=== PATIENT | male | born 1950 | race Asian ===

== ENCOUNTER 2016-06-24 18:36 | Observation (INO) | payer BC, MEDICARE ==
[~2016-06-24] VITALS: Ht 177.8 cm; Wt 75.7 kg
[~2016-06-24 18:36] MED LIST: ACET-2267 PO; ASPI-586 PO; ASPI-983 PO; ATOR20TA66 PO; CHOL100045 PO; CHOL10008 PO; CLOP75TA69 PO; ESCI10TA PO; L.AC1CAP6 PO; METO-270 PO; METO-333 PO; MULT1CAP27 PO; MULT1TAB69 PO; NITR0.4T SL; PANT40SU PO; UBID100T7 PO; UBID10CA5 PO
--- NOTE | 2016-06-24 18:52 | ED Chest Pain ---
General Chief Complaint: Chest Pain Stated Complaint: his last Source: patient Exam Limitations: no limitations History of Present Illness Time seen by provider: 18:50 Initial Comments To ER with reports of chest pain. This began yesterday at 8 p.m. at rest. He describes it as someone was pushing with one finger on the left sternal border second intercostal space. Since then, the pain has been intermittent. He is currently pain-free. He does have a history of CABG with reports that 2 of the bypass grafts are occluded and cannot be stented he states. He denies shortness of breath nausea or diaphoresis associated with the chest pain. No modifying factors that he can identify. Follows with Dr. Oh. He was sent here from urgent care. He had 325 mg of aspirin this morning and 325 mg at urgent care. Blood pressure is noted to be high here at 210/100 but states because he's anxious as urgent care scared him. Timing/Duration: 24 hours, intermittent Severity/Quality: moderate ASA po PSYCH SPECIALIST: Yes NTG SL PSYCH SPECIALIST: No Allergies and Home Medications Allergies Coded Allergies: levetiracetam (Verified Allergy, Mild, 10/11/15) Penicillins (Verified Allergy, Unknown, 09/22/15) cefuroxime (Verified Allergy, Unknown, 09/22/15) Home Medications Aspirin 81 Mg Tablet.dr 81 MG PO DAILY (Reported) Atorvastatin Calcium 20 Mg Tablet 20 MG PO HS (Reported) Cholecalciferol (Vitamin D3) 1,000 Unit Tablet 1,000 UNIT PO DAILY (Reported) Escitalopram Oxalate 10 Mg Tablet 10 MG PO HS (Reported) L.acidoph & Paracasei,B.lactis 1 Each Capsule 1 CAP PO DAILY (Reported) Metoprolol Tartrate 25 Mg Tablet 12.5 MG PO BID (Reported) Multivitamin 1 Each Tablet 1 TAB PO DAILY (Reported) Nitroglycerin 0.4 Mg Tab.subl #100 0.4 MG SL PRN (Reported) Review of Systems Constitutional: see HPI EENTM: No Symptoms Reported Respiratory: No Symptoms ReportedDenies Orthopnea Cardiovascular: See HPI Chest PainDenies Edema, Denies Irregular Heart Rate, Denies Lightheadedness, Denies Palpitations, Denies Syncope Gastrointestinal: See HPI Genitourinary: No Symptoms Reported Musculoskeletal: no symptoms reported Skin: no symptoms reported Psychiatric/Neurological: No Symptoms Reported Endocrine: No Symptoms Reported Hematologic/Lymphatic: No Symptoms Reported Past Hruflmj-Saukvs-Cblumt Hx Patient Social History Recent Foreign Travel: No Contact w/Someone Who Travel: No Recent Hopitalizations: No Immunizations Up To Date Tetanus Booster (TDap): Unknown Surgeries HX Surgeries: Yes Surgeries: Cardiac, CABG, Neurological Respiratory Hx Respiratory Disorders: Yes Respiratory Disorders: Sleep Apnea Cardiovascular Hx Cardiac Disorders: Yes Cardiac Disorders: Coronary Artery Disease, Heart Attack, High Cholesterol, Hypertension Neurological Hx Neurological Disorders: Yes (SUBDURAL HEMATOMA 09/27) Reproductive System Hx Reproductive Disorders: No Genitourinary Hx Genitourinary Disorders: No Gastrointestinal Hx Gastrointestinal Disorders: No Musculoskeletal Hx Musculoskeletal Disorders: No Endocrine Hx Endocrine Disorders: No HEENT HX ENT Disorders: No Cancer Hx Cancer: No Psychosocial Hx Psychiatric Problems: Yes Behavioral Health Disorders: Anxiety, Depression Integumentary HX Skin/Integumentary Disorder: No Blood Transfusions Hx Blood Disorders: No Family Medical History Family Medial History: FH: breast cancer 19 MOTHER Hypercholesterolemia G8 BROTHER Hypertension G8 BROTHER Physical Exam Vital Signs Vital Sign - Last 12Hours 06/24/16 18:40 Pulse Ox 100 O2 Delivery Room Air Capillary Refill : General Appearance: No Apparent Distress WD/WN HEENT: PERRL/EOMI TMs Normal Respiratory: Normal Breath Sounds No Accessory Muscle Use No Respiratory Distress Cardiovascular: Regular Rate, Rhythm Normal Peripheral Pulses Gastrointestinal: Normal Bowel Sounds Non Tender Soft Extremity: Normal Capillary Refill No Calf Tenderness Neurologic/Psychiatric: Alert Oriented x3 No Motor/Sensory Deficits Progress/Results/Core Measures Results/Orders Lab Results Laboratory Tests Test 06/24/16 18:57 Range/Units Activated Partial Thromboplast Time 28 24-35 SEC Alanine Aminotransferase (ALT/SGPT) 21 0-55 U/L Albumin 4.2 3.2-4.5 G/DL Alkaline Phosphatase 89 40-136 U/L Anion Gap 7 5-14 MMOL/L Aspartate Amino Transf (AST/SGOT) 24 5-34 U/L BUN/Creatinine Ratio 14 Basophils # (Auto) 0.1 0.0-0.1 10^3/uL Basophils (%) (Auto) 1 0-10 % Blood Urea Nitrogen 16 7-18 MG/DL Calcium Level 9.2 8.5-10.1 MG/DL Carbon Dioxide Level 24 21-32 MMOL/L Chloride Level 108 H 98-107 MMOL/L Creatinine 1.13 0.60-1.30 MG/DL Eosinophils # (Auto) 0.5 H 0.0-0.3 10^3/uL Eosinophils (%) (Auto) 8 0-10 % Estimat Glomerular Filtration Rate > 60 Glucose Level 82 70-105 MG/DL Hematocrit 42 40-54 % Hemoglobin 14.9 13.3-17.7 G/DL INR Comment 1.0 0.8-1.4 Lymphocytes # (Auto) 2.4 1.0-4.0 X 10^3 Lymphocytes (%) (Auto) 37 12-44 % Magnesium Level 2.1 1.8-2.4 MG/DL Mean Corpuscular Hemoglobin 30 25-34 PG Mean Corpuscular Hemoglobin Concent 36 32-36 G/DL Mean Corpuscular Volume 84 80-99 FL Mean Platelet Volume 9.3 7.4-10.4 FL Monocytes # (Auto) 0.7 0.0-1.0 X 10^3 Monocytes (%) (Auto) 10 0-12 % Myoglobin 62.3 10.0-92.0 NG/ML Neutrophils # (Auto) 2.8 1.8-7.8 X 10^3 Neutrophils (%) (Auto) 43 42-75 % Platelet Count 224 130-400 10^3/uL Potassium Level 3.7 3.6-5.0 MMOL/L Prothrombin Time 12.6 12.2-14.7 SEC Red Blood Count 4.92 4.35-5.85 10^6/uL Red Cell Distribution Width 11.7 10.0-14.5 % Sodium Level 139 135-145 MMOL/L Total Bilirubin 0.5 0.1-1.0 MG/DL Total Protein 7.2 6.4-8.2 G/DL Troponin I < 0.30 <0.30 NG/ML White Blood Count 6.4 4.3-11.0 10^3/uL My Orders Orders-ROBERT MAURICIO SALES MGR Cbc With Automated Diff (06/24/16 18:49) Magnesium (06/24/16 18:49) Chest 1 View, Ap/Pa Only (06/24/16 18:49) Ekg Tracing (06/24/16 18:49) Cardiac Profile 1 (06/24/16 18:49) Comprehensive Metabolic Panel (06/24/16 18:49) Myoglobin Serum (06/24/16 18:49) Protime With Inr (06/24/16 18:49) Partial Thromboplastin Time (06/24/16 18:49) O2 (06/24/16 18:49) Monitor-Rhythm Ecg Trace Only (06/24/16 18:49) Lipid Panel (06/25/16 06:00) Saline Lock/Iv-Start (06/24/16 18:49) Metoprolol Tartrate (Ir) Tab (Lopressor (06/24/16 19:30) Metoprolol Tartrate (Ir) Tab (Lopressor (06/24/16 19:27) Metoprolol Tartrate (Ir) Tab (Lopressor (06/24/16 19:30) Medications Given in ED Current Medications Medications Dose Ordered Sig/Luke Route Start Time Stop Time Status Last Admin Dose Admin Metoprolol Tartrate 25 mg ONCE ONCE PO 06/24/16 19:30 06/24/16 19:31 DC 06/24/16 19:32 25 MG Vital Signs/I&O Vital Sign - Last 12Hours 06/24/16 06/24/16 06/24/16 18:40 18:50 18:50 Temp 98.2 Pulse 82 Resp 18 B/P 190/105 Pulse Ox 100 100 O2 Delivery Room Air Room Air Room Air Departure Communication Time/Spoke to Admitting Phy: 19:[address] Hidalgo. We will admit for observation. Progress Notes 1930-blood pressure remains 170/100, heart rate 76 sinus without ectopy. I ordered 50 mg of metoprolol tartrate 50 mg. The family does not want him to have this, they only want him to have 25mg instead. Patient does request not to have an IV started but he does consent to blood draw. 1955-patient's daughter is present it is concerned that his hypertension on arrival may have caused recurrence of subdural hematoma even though he is symptom-free, but she does not want a CT scan at this time and would like to "think about it" because she is concerned about radiation. The patient himself is much more relaxed and his family members. He remains pain-free at this time. He has no focal neurologic deficits. Impression Impression: Primary Impression: Labile hypertension Additional Impression: Chest pain Qualified Code: R07.9 - Chest pain, unspecified Disposition: 09 ADMITTED INPATIENT Condition: Stable Decision to Admit Reason: Admit from ER (General) Decision to Admit/Date: Jun 24, 2016 Time/Decision to Admit Time: 19:58 Departure-Patient Inst. Referrals: ALANNA EDGAR DO (PCP/Family) Primary Care Physician ROBERT MAURICIO APRN Jun 24, 2016 18:52
[2016-06-24 19:11] LABS: BASOPHILS # (AUTO) 0.1 10^3/uL (0.0-0.1); BASOPHILS % (AUTO) 1 % (0-10); EOSINOPHILS # (AUTO) 0.5 10^3/uL (0.0-0.3); EOSINOPHILS % (AUTO) 8 % (0-10); LYMPHOCYTES # (AUTO) 2.4 X 10^3 (1.0-4.0); LYMPHOCYTES % (AUTO) 37 % (12-44); MEAN CORPUSCULAR HEMOGLOBIN 30 PG (25-34); MEAN CORPUSCULAR HGB CONC 36 G/DL (32-36); MEAN CORPUSCULAR VOLUME 84 FL (80-99); MEAN PLATELET VOLUME 9.3 FL (7.4-10.4); MONOCYTES # (AUTO) 0.7 X 10^3 (0.0-1.0); MONOCYTES % (AUTO) 10 % (0-12); NEUTROPHILS # (AUTO) 2.8 X 10^3 (1.8-7.8); NEUTROPHILS % (AUTO) 43 % (42-75); PLATELET COUNT 224 10^3/uL (130-400); RED BLOOD COUNT 4.92 10^6/uL (4.35-5.85); RED CELL DISTRIBUTION WIDTH 11.7 % (10.0-14.5); WHITE BLOOD COUNT 6.4 10^3/uL (4.3-11.0)
--- NOTE | 2016-06-24 19:14 | Diagnostic Imaging Report ---
INDICATION: Chest pain. EXAMINATION: Single view of the chest was obtained. COMPARISON: 04/18/2016. FINDINGS: Sternal wires are midline. The lungs are free of acute infiltrate. There is no failure, effusion or pneumothorax. IMPRESSION: No acute appearing abnormality. Dictated by: Dictated on workstation # [id number]
[2016-06-24 19:20] LABS: PROTHROMBIN TIME PATIENT 12.6 SEC (12.2-14.7)
[2016-06-24] MEDS ORDERED: meTOprolol TARTRATE 25 MG (LOPRESSOR) TABLET ONE (19:27)
[2016-06-24] MEDS ORDERED: meTOprolol TARTRATE 25 MG (LOPRESSOR) TABLET PO ONE (19:30)
[2016-06-24] MEDS ORDERED: meTOprolol TARTRATE 50 MG (LOPRESSOR) TAB PO ONE (19:30)
[2016-06-24 19:32] LABS: ALANINE AMINOTRANSFERASE 21 U/L (0-55); ALBUMIN 4.2 G/DL (3.2-4.5); ANION GAP 7 MMOL/L (5-14); ASPARTATE AMINO TRANSFERASE 24 U/L (5-34); BILIRUBIN,TOTAL 0.5 MG/DL (0.1-1.0); BLOOD UREA NITROGEN 16 MG/DL (7-18); BUN/CREATININE RATIO 14; CALCIUM 9.2 MG/DL (8.5-10.1); CARBON DIOXIDE 24 MMOL/L (21-32); CHLORIDE 108 MMOL/L (98-107); CREATININE SERUM 1.13 MG/DL (0.60-1.30); GFR ESTIMATED > 60; GLUCOSE 82 MG/DL (70-105); MAGNESIUM 2.1 MG/DL (1.8-2.4); POTASSIUM 3.7 MMOL/L (3.6-5.0); SODIUM 139 MMOL/L (135-145); TOTAL PROTEIN 7.2 G/DL (6.4-8.2)
[2016-06-24 19:39] LABS: MYOGLOBIN SERUM 62.3 NG/ML (10.0-92.0)
--- NOTE | 2016-06-24 21:24 | Diagnostic Imaging Report ---
PROCEDURE: CT head without contrast. TECHNIQUE: Multiple contiguous axial images were obtained through the brain without the use of intravenous contrast. INDICATION: Subdural hematoma. COMPARISON: 02/17/2016. FINDINGS: Old right frontal amy hole is noted. Shallow right hemispheric subdural low density collection today measures 6 mm, previously 6-7 mm, at the same level. This is stable if not slightly decreased. No hyperdense or acute appearing intracranial hemorrhage. The left hemisphere shows no extra-axial collection. No cerebral edema. No sulcal effacement. The ventricular system is nondilated and nondisplaced. Opacification of ethmoid air cells, bilaterally, is redemonstrated. There is opacification of the hypoplastic right frontal sinus. Small left frontal sinus is clear. Mastoids and middle ear cavities are clear. There is slight membrane thickening in the bilateral maxillary sinuses, stable. IMPRESSION: Stable to slightly decreased low-density chronic right hemispheric subdural collection without mass effect or evidence of acute or new hemorrhage. Extensive paranasal sinus disease redemonstrated. Dictated by: Dictated on workstation # [id number]
[2016-06-25 00:49] VITALS: BP 131/67
[2016-06-25 02:33] LABS: BASOPHILS % (AUTO) 1 % (0-10); EOSINOPHILS # (AUTO) 0.5 10^3/uL (0.0-0.3); EOSINOPHILS % (AUTO) 8 % (0-10); LYMPHOCYTES % (AUTO) 35 % (12-44); MEAN CORPUSCULAR HEMOGLOBIN 30 PG (25-34); MEAN CORPUSCULAR HGB CONC 36 G/DL (32-36); MEAN CORPUSCULAR VOLUME 85 FL (80-99); MEAN PLATELET VOLUME 9.5 FL (7.4-10.4); MONOCYTES # (AUTO) 0.5 X 10^3 (0.0-1.0); MONOCYTES % (AUTO) 9 % (0-12); NEUTROPHILS # (AUTO) 2.8 X 10^3 (1.8-7.8); NEUTROPHILS % (AUTO) 47 % (42-75); PLATELET COUNT 208 10^3/uL (130-400); RED BLOOD COUNT 4.32 10^6/uL (4.35-5.85); RED CELL DISTRIBUTION WIDTH 11.5 % (10.0-14.5); WHITE BLOOD COUNT 5.8 10^3/uL (4.3-11.0)
[2016-06-25 02:41] LABS: CREATINE KINASE 98 U/L (30-200)
[2016-06-25 02:46] LABS: ANION GAP 7 MMOL/L (5-14); BLOOD UREA NITROGEN 15 MG/DL (7-18); BUN/CREATININE RATIO 14; CALCIUM 8.8 MG/DL (8.5-10.1); CARBON DIOXIDE 25 MMOL/L (21-32); CHLORIDE 107 MMOL/L (98-107); CREATININE SERUM 1.11 MG/DL (0.60-1.30); GFR ESTIMATED > 60; GLUCOSE 83 MG/DL (70-105); MAGNESIUM 2.3 MG/DL (1.8-2.4); PHOSPHORUS 2.8 MG/DL (2.3-4.7); POTASSIUM 3.9 MMOL/L (3.6-5.0); SODIUM 139 MMOL/L (135-145)
[2016-06-25 02:47] LABS: TROPONIN I < 0.30 NG/ML (<0.30)
[2016-06-25 02:48] LABS: CHOLESTEROL 136 MG/DL (< 200); DIRECT LDL 87 MG/DL (1-129); TRIGLYCERIDES 88 MG/DL (<150); VLDL CHOLESTEROL 18 MG/DL (5-40)
[2016-06-25 04:00] VITALS: BP 109/62
[2016-06-25 07:24] LABS: CHOLESTEROL 141 MG/DL (< 200); DIRECT LDL 92 MG/DL (1-129); TRIGLYCERIDES 107 MG/DL (<150); VLDL CHOLESTEROL 21 MG/DL (5-40)
[2016-06-25 08:00] VITALS: BP 112/68
[2016-06-25] MEDS ORDERED: FLU TRIvalent (5 YOA+) 2016-17 (AFLURIA) 0.5 ML IM ONE (08:30)
--- NOTE | 2016-06-25 08:48 | Diagnostic Imaging Report ---
Portable erect AP chest at 513 hours. INDICATION: Chest pain. FINDINGS: The heart size is within normal limits and stable when compared to 06/24/16. The sternal wires and surgical clips noted previously are again evident and no different. The lungs are clear. There is no sign of failure, pneumonia or pleural effusion. Mediastinum is not widened. The osseous structures are intact. IMPRESSION: Stable chest. There has been no adverse change since the prior exam. Dictated by: Dictated on workstation # [id number]
--- NOTE | 2016-06-25 09:46 | Short Stay Summary ---
History of Present Illness History of Present Illness Reason for visit/HPI 66-year-old gentleman with history of coronary artery disease has history of CABG, cardiac catheterization post CABG, inoperable disease with occluded vein graft to the obtuse marginal, atretic vein graft to the right coronary artery, has been doing well*having some chest discomfort, retrosternal pain about 2 days ago lasted for a day on and off, went to the urgent care and then came to the emergency room, given sublingual nitroglycerin, since admission last night he has been feeling better, no further episode of chest pain, denied any associated symptoms of shortness of breath, palpitation, syncope or near syncopal episodes. He has been compliant with his medication, had a lot of questions, all his questions were answered. Date of Admission Jun 24, 2016 at 20:16 Date of Discharge June 25, 2016 Attending Physician Thalia Hidalgo MD Admitting Physician Fei Herrera DO Allergies and Home Medications Allergies Coded Allergies: levetiracetam (Verified Allergy, Mild, 10/11/15) Penicillins (Verified Allergy, Unknown, 09/22/15) cefuroxime (Verified Allergy, Unknown, 09/22/15) Home Medications Aspirin 81 Mg Tablet.dr 81 MG PO DAILY (Reported) Atorvastatin Calcium 20 Mg Tablet 30Days 10 MG PO HS Prescribed by: MAZIN MURRAY on 06/25/16 0950 Cholecalciferol (Vitamin D3) 1,000 Unit Tablet 1,000 UNIT PO DAILY (Reported) L.acidoph & Paracasei,B.lactis 1 Each Capsule 1 CAP PO DAILY (Reported) Multivitamin 1 Each Tablet 1 TAB PO DAILY (Reported) Nitroglycerin 0.4 Mg Tab.subl #100 0.4 MG SL PRN (Reported) Past Pmcjtno-Avnmzv-Fkdnhj Hx Patient Social History Alcohol Use: Denies Use Recreational Drug Use: No Smoking Status: Never a Smoker 2nd Hand Smoke Exposure: No Physical Abuse Screen: No Sexual Abuse: No Recent Foreign Travel: No Contact w/other who traveled: No Recent Hopitalizations: No Recent Infectious Disease Expo: No Immunizations Up To Date Tetanus Booster (TDap): Unknown Seasonal Allergies Seasonal Allergies: Yes Surgeries HX Surgeries: Yes Surgeries: Cardiac, CABG, Neurological Respiratory Hx Respiratory Disorders: Yes Respiratory Disorders: Asthma Cardiovascular Hx Cardiovascular Disorders: Yes Cardiac Disorders: Coronary Artery Disease, Heart Attack, High Cholesterol, Hypertension Neurological Hx Neurological Disorders: Yes (SUBDURAL HEMATOMA 09/27) Reproductive System Hx Reproductive Disorders: No Genitourinary Hx Genitourinary Disorders: No Gastrointestinal Hx Gastrointestinal Disorders: No Musculoskeletal Hx Musculoskeletal Disorders: No Endocrine Hx Endocrine Disorders: No HEENT HX ENT Disorders: No Cancer Hx Cancer: No Psychosocial Hx Psychiatric Problems: Yes Behavioral Health Disorders: Anxiety, Depression Integumentary HX Skin/Integumentary Disorder: No Skin/Integumentary Disorders: Eczema Blood Transfusions Hx Blood Disorders: No Family Medical History Family Hx: FH: breast cancer 19 MOTHER Hypercholesterolemia G8 BROTHER Hypertension G8 BROTHER Constitutional: no symptoms reported see HPI EENTM: no symptoms reported see HPI Respiratory: see HPINo cough, No dyspnea on exertion, No hemoptysis, No orthopnea, No phlegm, No short of breath, No stridor, No wheezing, No other Cardiovascular: see HPI chest painNo edema, No Hx of Intervention, No palpitations, No syncope, No vascular heart diseas, No other Gastrointestinal: no symptoms reported see HPI Genitourinary: no symptoms reported see HPI Musculoskeletal: no symptoms reported see HPI Skin: no symptoms reported see HPI Psychiatric/Neurological: No Symptoms Reported See HPI Physical Exam Vital Signs Vital Sign - Last 12Hours 06/24/16 18:40 Pulse Ox 100 O2 Delivery Room Air Capillary Refill : Less Than 3 Seconds General Appearance: No Apparent Distress WD/WN Eyes: Bilateral Eye EOMI, Bilateral Eye Normal Inspection, Bilateral Eye PERRL HEENT: PERRL/EOMI TMs Normal Normal ENT Inspection Pharynx Normal Neck: Full Range of Motion Normal Inspection Non Tender Supple Carotid Bruit Respiratory: Chest Non Tender Lungs Clear Normal Breath Sounds No Accessory Muscle Use No Respiratory Distress Cardiovascular: Regular Rate, Rhythm No Edema No Gallop No JVD No Murmur Normal Peripheral Pulses Gastrointestinal: Normal Bowel Sounds No Organomegaly No Pulsatile Mass Non Tender Soft Back: Normal Inspection No CVA Tenderness No Vertebral Tenderness Extremity: Normal Capillary Refill Normal Inspection Normal Range of Motion Non Tender No Calf Tenderness No Pedal Edema Neurologic/Psychiatric: Alert Oriented x3 No Motor/Sensory Deficits Normal Mood/Affect Skin: Normal Color Warm/Dry Lymphatic: No Adenopathy Clinical Quality Measures AMI/AHF: ASA po Prior to arrival: Yes DVT/VTE Risk/Contraindication: VTE Present on Admission: No Risk Factor Score Per Nursin RFS Level Per Nursing on Admit: 1=Low/No VTE PPX Short Stay Diagnosis Discharge Diagnosis-Short Stay Admission Diagnosis: chest pain nonspecific etiology Coronary artery disease Hypertension Hyperlipidemia Final Discharge Diagnosis: chest pain nonspecific etiology Coronary artery disease Hypertension Hyperlipidemia Conclusion Labs Laboratory Tests 06/24/16 18:57: Activated Partial Thromboplast Time 28, Alanine Aminotransferase (ALT/SGPT) 21, Albumin 4.2, Alkaline Phosphatase 89, Anion Gap 7, Aspartate Amino Transf (AST/ SGOT) 24, BUN/Creatinine Ratio 14, Basophils # (Auto) 0.1, Basophils (%) (Auto) 1, Blood Urea Nitrogen 16, Calcium Level 9.2, Carbon Dioxide Level 24, Chloride Level 108H, Creatinine 1.13, Eosinophils # (Auto) 0.5H, Eosinophils (%) (Auto) 8 , Estimat Glomerular Filtration Rate > 60, Glucose Level 82, Hematocrit 42, Hemoglobin 14.9, INR Comment 1.0, Lymphocytes # (Auto) 2.4, Lymphocytes (%) ( Auto) 37, Magnesium Level 2.1, Mean Corpuscular Hemoglobin 30, Mean Corpuscular Hemoglobin Concent 36, Mean Corpuscular Volume 84, Mean Platelet Volume 9.3, Monocytes # (Auto) 0.7, Monocytes (%) (Auto) 10, Myoglobin 62.3, Neutrophils # ( Auto) 2.8, Neutrophils (%) (Auto) 43, Platelet Count 224, Potassium Level 3.7, Prothrombin Time 12.6, Red Blood Count 4.92, Red Cell Distribution Width 11.7, Sodium Level 139, Total Bilirubin 0.5, Total Protein 7.2, Troponin I < 0.30, White Blood Count 6.4 06/25/16 02:07: Anion Gap 7, BUN/Creatinine Ratio 14, Basophils # (Auto) 0.0, Basophils (%) ( Auto) 1, Blood Urea Nitrogen 15, Calcium Level 8.8, Carbon Dioxide Level 25, Chloride Level 107, Creatinine 1.11, Eosinophils # (Auto) 0.5H, Eosinophils (%) (Auto) 8, Estimat Glomerular Filtration Rate > 60, Glucose Level 83, Hematocrit 37L, Hemoglobin 13.1L, Lymphocytes # (Auto) 2.0, Lymphocytes (%) (Auto) 35, Magnesium Level 2.3, Mean Corpuscular Hemoglobin 30, Mean Corpuscular Hemoglobin Concent 36, Mean Corpuscular Volume 85, Mean Platelet Volume 9.5, Monocytes # (Auto) 0.5, Monocytes (%) (Auto) 9, Neutrophils # (Auto) 2.8, Neutrophils (%) (Auto) 47, Platelet Count 208, Potassium Level 3.9, Red Blood Count 4.32L, Red Cell Distribution Width 11.5, Sodium Level 139, Troponin I < 0.30, White Blood Count 5.8, Cholesterol Level 136, HDL Cholesterol 34L, LDL Cholesterol Direct 87, Phosphorus Level 2.8, Total Creatine Kinase 98, Triglycerides Level 88, VLDL Cholesterol 18 06/25/16 06:55: Troponin I < 0.30, Cholesterol Level 141, HDL Cholesterol 31L, LDL Cholesterol Direct 92, Triglycerides Level 107, VLDL Cholesterol 21 Conclusion/Plan Chest pain nonspecific etiology, feeling better at this time, continue to monitor, no changes are recommended. Discussed the possible to having stress test or cardiac catheterization in the near future as an outpatient. Patient was questioning about having ultrasound to his gallbladder, I recommended visiting with his primary care physician and discuss them, he is asymptomatic at this time, no reproducible pain. Coronary artery disease, history of CABG 4 done in October 2014 using LARSEN to LAD , vein graft to the posterior lateral branch, sequential vein graft to OM and diagonal branch. Cardiac catheterization was done on March 10, 2015 showing 75 percent proximal LAD with patent LARSEN, patent vein graft to D2, 90 percent proximal and total occlusion of the distal circumflex artery with occluded vein graft to the distal OM, 40 percent proximal right coronary artery with an atretic but patent graft to the posterior lateral branch of the right coronary artery, ejection fraction was 70 percent. Recommended medical therapy at this time, we had a long discussion about the management plan, patient had a baseline abnormal stress test, can do stress test with close monitoring to the changes or need serial cardiac catheterization with close monitoring to his coronary artery disease especially with his chest pain. he will discuss it with his primary end user consultant as an outpatient Subdural hematoma, treated surgically at [facility] in September 2015. 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 History of chronic intermittent chest pain, medical therapy is recommended. 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 History of left pleural effusion post CABG, had thoracocentesis in November 2014 in [place]. Monitored by primary care physician. Hyperlipidemia, patient is vegetarian, educated about diet control and exercise. History of allergic rhinitis Family history o coronary artery disease THALIA HIDALGO MD Jun 25, 2016 09:46 THALIA HIDALGO MD Jun 25, 2016 09:46
[2016-06-25] MEDS ORDERED: ATOR20TA66 PO (09:50)
== END 2016-06-25 09:58 | disposition home or self-care (01) ==
LOC: EDUNIT# 18:36 → ER 18:38 → ICU 20:16 → UNDOADMOB 20:16 → ICU 22:00 → UNDODISOB 06-25 11:15
PROVIDERS: ADMIT Internal Medicine Cardiovascular Disease; ATTEND Internal Medicine Cardiovascular Disease
DX: R07.9 Chest pain, unspecified (principal); I25.10 Atherosclerotic heart disease of native coronary artery without angina pectoris; I25.810 Atherosclerosis of coronary artery bypass graft(s) without angina pectoris; I10 Essential (primary) hypertension; E78.5 Hyperlipidemia, unspecified
CPT/HCPCS: 36415; 70450; 71010; 80048; 80053; 80061; 82550; 83735; 83874; 84100; 84484; 85025; 85610; 85730; 93005; 93041; G0378

== ENCOUNTER → 2016-07-06 | Outpatient (CLI) | payer BC, MEDICARE ==
--- OUTSIDE RECORDS SUMMARY | 2016-07-06 09:03 | XMS REPORT | Continuity of Care Document ---
Author Author [facility] Organization [facility] Address Unknown Phone Unavailable Allergies Active Description Code Type Severity Reaction Onset Reported/Identified Relationship to Patient Clinical Status Yes cefuroxime [id number] Drug Allergy Unknown N/A 09/22/2015 Yes Penicillins [id number] Drug Allergy Unknown N/A 09/22/2015 Yes levetiracetam [id number] Drug Allergy Mild N/A 10/11/2015 Medications Problems Date Dx Coded Attending Type Code Diagnosis Diagnosed By 08/07/2014 Ot 781.91 08/07/2014 Ot V17.81 08/07/2014 Ot V82.81 08/07/2014 Ot 786.50 08/07/2014 Ot 781.91 08/07/2014 Ot V17.81 08/07/2014 Ot V82.81 08/07/2014 Ot 786.50 08/15/2014 Ot 786.50 08/15/2014 Ot 781.91 08/15/2014 Ot V17.81 08/15/2014 Ot V82.81 08/15/2014 Ot 786.50 11/06/2014 Ot 781.91 11/06/2014 Ot V17.81 11/06/2014 Ot V82.81 11/06/2014 Ot 786.50 12/24/2014 Ot 781.91 12/24/2014 Ot V17.81 12/24/2014 Ot V82.81 12/24/2014 Ot 786.50 12/25/2014 ALANNA EDGAR DO Ot V45.81 12/25/2014 ALANNA EDGAR DO Ot V57.89 01/12/2015 Ot 781.91 01/12/2015 Ot V17.81 01/12/2015 Ot V82.81 01/12/2015 Ot 786.50 01/12/2015 ALANNA EDGAR DO Ot V45.81 01/12/2015 ALANNA EDGAR DO Ot V57.89 01/12/2015 JENNIFER DEL CID FACC, ALI FACP CCDS Ot 272.4 01/12/2015 JENNIFER DEL CID FACC, ALI FACP CCDS Ot 414.01 01/12/2015 JENNIFER DEL CID FAC, ALI FACP CCDS Ot 511.9 01/14/2015 Ot 781.91 01/14/2015 Ot V17.81 01/14/2015 Ot V82.81 01/14/2015 Ot 786.50 01/14/2015 ALANNA EDGAR DO Ot V45.81 01/14/2015 ALANNA EDGAR DO Ot V57.89 01/14/2015 JENNIFER DEL CID FAC, ALI FACP CCDS Ot 272.4 01/14/2015 JENNIFER DEL CID FAC, ALI FACP CCDS Ot 414.01 01/14/2015 JENNIFER DEL CID FAC, ALI FACP CCDS Ot 511.9 01/15/2015 JENNIFER DEL CID [facility], ALI FACP CCDS Ot 272.4 01/15/2015 JENNIFER DEL CID [facility], ALI FACP CCDS Ot 414.01 01/15/2015 JENNIFER DEL CID [facility], ALI FACP CCDS Ot 511.9 01/27/2015 ALANNA EDGAR DO Ot V45.81 01/27/2015 ALANNA EDGAR DO Ot V57.89 01/27/2015 JENNIFER DEL CID [facility], ALI FACP CCDS Ot 272.4 01/27/2015 JENNIFER DEL CID [facility], ALI FACP CCDS Ot 414.01 01/27/2015 JENNIFER DEL CID [facility], ALI FACP CCDS Ot 511.9 01/29/2015 BLAIR MICHAEL DO Ot 272.4 01/29/2015 BLAIR MICHAEL DO Ot 414.01 01/29/2015 BLAIR MICHAEL DO Ot 780.54 01/29/2015 BLAIR MICHAEL DO Ot 786.09 01/29/2015 Ot 781.91 01/29/2015 Ot V17.81 01/29/2015 Ot V82.81 01/29/2015 Ot 786.50 01/29/2015 ALANNA EDGAR DO Ot V45.81 01/29/2015 ALANNA EDGAR DO Ot V57.89 01/29/2015 JENNIFER DEL CID [facility], ALI FACP CCDS Ot 272.4 01/29/2015 JENNIFER MCCRAYC, [facility] CCDS Ot 414.01 01/29/2015 JENNIFER DEL CID FAC, [facility] CCDS Ot 511.9 01/29/2015 BLAIR MICHAEL DO Ot 272.4 01/29/2015 FERNANDA BLAIR Pierce Ot 414.01 01/29/2015 FERNANDA BLAIR Ot 780.54 01/29/2015 BLAIR MICHAEL DO Ot 786.09 02/06/2015 ALANNA EDGAR DO Ot V45.81 02/06/2015 ALANNA EDGAR DO Ot V57.89 02/06/2015 BLAIR MICHAEL DO Ot 272.4 02/06/2015 BLAIR MICHAEL DO Ot 414.01 02/06/2015 BLAIR MICHAEL DO Ot 780.54 02/06/2015 BLAIR MICHAEL DO Ot 786.09 02/11/2015 ALANNA EDGAR DO Ot V45.81 AORTOCORONARY BYPASS 02/11/2015 ALANNA EDGAR DO Ot V57.89 REHABILITATION PROC NEC 02/14/2015 ALANNA EDGAR DO Ot V45.81 02/14/2015 ALANNA EDGAR DO Ot V57.89 02/17/2015 ALANNA EDGAR DO Ot V45.81 02/17/2015 ALANNA EDGAR DO Ot V57.89 02/17/2015 ALANNA EDGAR DO Ot V45.81 02/17/2015 ALANNA EDGAR DO Ot V57.89 02/17/2015 ALANNA EDGAR DO Ot V45.81 02/17/2015 ALANNA EDGAR DO Ot V57.89 02/22/2015 Ot G47.33 OBSTRUCTIVE SLEEP APNEA (ADULT) (PEDIATR 02/23/2015 ALANNA EDGAR DO Ot V45.81 02/23/2015 ALANNA EDGAR DO Ot V57.89 03/11/2015 ALANNA EDGAR DO Ot V45.81 03/11/2015 ALANNA EDGAR DO Ot V57.89 03/26/2015 ALANNA EDGAR DO Ot Z48.812 03/26/2015 ALANNA EDGAR DO Ot Z95.1 03/26/2015 ALANNA EDGAR DO Ot Z48.812 03/26/2015 HERVE CAMACHO ALANNA Lauren Ot Z95.1 04/01/2015 HERVE CAMACHO ALANNA Lauren Ot Z48.812 04/01/2015 HERVE CAMACHO ALANNA Lauren Ot Z95.1 05/11/2015 Ot 781.91 05/11/2015 Ot V17.81 05/11/2015 Ot V82.81 05/11/2015 Ot 786.50 05/11/2015 JENNIFER DEL CID FAC, ALI FACP CCDS Ot 272.4 05/11/2015 JENNIFER MCCRAY, ALI FACP CCDS Ot 414.01 05/11/2015 JENNIFER DEL CID FACC, ALI FACP CCDS Ot 511.9 05/11/2015 BLAIR MICHAEL DO Ot 272.4 05/11/2015 BLAIR MICHAEL DO Ot 414.01 05/11/2015 BLAIR MICHAEL DO Ot 780.54 05/11/2015 BLAIR MICHAEL DO Ot 786.09 05/11/2015 ALANNA EDGAR DO Ot Z48.812 05/11/2015 ALANNA EDGAR DO Ot Z95.1 05/11/2015 BLAIR MICHAEL DO Ot R06.00 05/11/2015 BLAIR MICHAEL DO Ot R91.8 05/14/2015 ALANNA EDGAR DO Ot Z48.812 ENCNTR FOR SURGICAL AFTCR FOLLOWING SURG 05/14/2015 ALANNA EDGAR DO Ot Z95.1 PRESENCE OF AORTOCORONARY BYPASS GRAFT 05/19/2015 ALANNA EDGAR DO Ot Z48.812 05/19/2015 ALANNA EDGAR DO Ot Z95.1 05/19/2015 BLAIR MICHAEL DO Ot R06.00 05/19/2015 BLAIR MICHAEL DO Ot R91.8 06/23/2015 Ot 781.91 06/23/2015 Ot V17.81 06/23/2015 Ot V82.81 06/23/2015 Ot 786.50 06/23/2015 JENNIFER DEL CID FACC, ALI FACP CCDS Ot 272.4 06/23/2015 JENNIFER DEL CID FACC, ALI FACP CCDS Ot 414.01 06/23/2015 JENNIFER DEL CID FACC, ALI FACP CCDS Ot 511.9 06/23/2015 FERNANDA BLAIR CAMACHO Ot 272.4 06/23/2015 FERNANDA BLAIR CAMACHO M Ot 414.01 06/23/2015 FERNANDA BLAIR CAMACHO Ot 780.54 06/23/2015 FERNANDA BLAIR CAMACHO Ot 786.09 06/23/2015 FERNANDA CAMACHO BLAIR Pierce Ot R06.00 06/23/2015 FERNANDA CAMACHO BLAIR Pierce Ot R91.8 06/23/2015 ALANNA EDGAR DO Ot Z48.812 06/23/2015 ALANNA EDGAR DO Ot Z95.1 07/02/2015 JENNIFER DEL CID FAC, ALI FACP CCDS Ot I25.10 07/02/2015 JENNIFER DEL CID FAC, ALI FACP CCDS Ot R55 07/13/2015 JENNIFER DEL CID FACC, ALI FACP CCDS Ot I25.10 07/13/2015 JENNIFER DEL CID FAC, ALI FACP CCDS Ot R55 07/22/2015 JENNIFER DEL CID FACC, ALI FACP CCDS Ot I25.10 07/22/2015 JENNIFER DEL CID FAC, ALI FACP CCDS Ot R55 08/10/2015 Ot 781.91 08/10/2015 Ot V17.81 08/10/2015 Ot V82.81 08/10/2015 Ot 786.50 08/10/2015 JENNIFER DEL CID FAC, ALI FACP CCDS Ot 272.4 08/10/2015 JENNIFER DEL CID FAC, ALI FACP CCDS Ot 414.01 08/10/2015 JENNIFER DEL CID FAC, ALI FACP CCDS Ot 511.9 08/10/2015 FERNANDA CAMACHOBLAIR Ot 272.4 08/10/2015 FERNANDA CAMACHOBLAIR M Ot 414.01 08/10/2015 FERNANDA CAMACHO BLAIR Pierce Ot 780.54 08/10/2015 FERNANDA CAMACHO BLAIR Pierce Ot 786.09 08/10/2015 FERNANDA CAMACHOBLAIR Ot R06.00 08/10/2015 FERNANDA CAMACHO BLAIR Pierce Ot R91.8 08/10/2015 ALANNA EDGAR DO Ot Z48.812 08/10/2015 ALANNA EDGAR DO Ot Z95.1 08/10/2015 JENNIFER DEL CID FACC, JACEY FACP CCDS Ot I25.10 08/10/2015 JENNIFER DEL CID FACC, ALI FACP CCDS Ot R55 08/10/2015 JENNIFER DEL CID FACC, ALI FACP CCDS Ot I25.10 08/10/2015 JENNIFER DEL CID FACC, ALI FACP CCDS Ot R55 09/18/2015 Ot 781.91 LOSS OF HEIGHT 09/18/2015 Ot V17.81 FAMILY HISTORY, OSTEOPOROSIS 09/18/2015 Ot V82.81 SCREENING FOR OSTEOPOROSIS 09/18/2015 Ot 786.50 CHEST PAIN NOS 09/18/2015 JENNIFER DEL CID FACC, JACEY FACP CCDS Ot 272.4 HYPERLIPIDEMIA NEC/NOS 09/18/2015 JENNIFER DEL CID FACC, JACEY FACP CCDS Ot 414.01 CORONARY ATHEROSCLEROSIS OF [place] CORON 09/18/2015 JENNIFER DEL CID FACC, JACEY FACP CCDS Ot 511.9 PLEURAL EFFUSION NOS 09/18/2015 BLAIR MICHAEL DO Ot 272.4 HYPERLIPIDEMIA NEC/NOS 09/18/2015 BLAIR MICHAEL DO Ot 414.01 CORONARY ATHEROSCLEROSIS OF [place] CORON 09/18/2015 BLAIR MICHAEL DO Ot 780.54 HYPERSOMNIA, UNSPECIFIED 09/18/2015 BLAIR MICHAEL DO Ot 786.09 RESPIRATORY ABNORM NEC 09/18/2015 BLAIR MICHAEL DO Ot R06.00 DYSPNEA, UNSPECIFIED 09/18/2015 BLAIR MICHAEL DO Ot R91.8 OTHER NONSPECIFIC ABNORMAL FINDING OF [place]GEN[place] 09/18/2015 ALANNA EDGAR DO Ot Z48.812 ENCNTR FOR SURGICAL AFTCR FOLLOWING SURG 09/18/2015 ALANNA EDGAR DO Ot Z95.1 PRESENCE OF AORTOCORONARY BYPASS GRAFT 09/18/2015 JENNIFER DEL CID FACC, JACEY FACP CCDS Ot I25.10 ATHSCL HEART DISEASE OF [place] CORONARY 09/18/2015 JENNIFER DEL CID FACC, JACEY FACP CCDS Ot R55 SYNCOPE AND COLLAPSE 09/18/2015 JENNIFER DEL CID FACC, JACEY FACP CCDS Ot I25.10 ATHSCL HEART DISEASE OF [place] CORONARY 09/18/2015 JENNIFER DEL CID FACC, JACEY FACP CCDS Ot R55 SYNCOPE AND COLLAPSE 09/22/2015 ALANNA EDGAR DO Ot Z48.812 ENCNTR FOR SURGICAL AFTCR FOLLOWING SURG 09/22/2015 ALANNA EDGAR DO Ot Z95.1 PRESENCE OF AORTOCORONARY BYPASS GRAFT 09/22/2015 Ot 781.91 LOSS OF HEIGHT 09/22/2015 Ot V17.81 FAMILY HISTORY, OSTEOPOROSIS 09/22/2015 Ot V82.81 SCREENING FOR OSTEOPOROSIS 09/22/2015 Ot 786.50 CHEST PAIN NOS 09/22/2015 JENNIFER DEL CID FACC, JACEY FACP CCDS Ot 272.4 HYPERLIPIDEMIA NEC/NOS 09/22/2015 JACEY RODRIGUEZ MD, FACCP CCDS Ot 414.01 CORONARY ATHEROSCLEROSIS OF [place] CORON 09/22/2015 JACEY RODRIGUEZ MD, FACCP CCDS Ot 511.9 PLEURAL EFFUSION NOS 09/22/2015 BLAIR MICHAEL DO Ot 272.4 HYPERLIPIDEMIA NEC/NOS 09/22/2015 BLAIR MICHAEL DO Ot 414.01 CORONARY ATHEROSCLEROSIS OF [place] CORON 09/22/2015 BLAIR MICHAEL DO Ot 780.54 HYPERSOMNIA, UNSPECIFIED 09/22/2015 BLAIR MICHAEL DO Ot 786.09 RESPIRATORY ABNORM NEC 09/22/2015 BLAIR MICHAEL DO Ot R06.00 DYSPNEA, UNSPECIFIED 09/22/2015 BLAIR MICHAEL DO Ot R91.8 OTHER NONSPECIFIC ABNORMAL FINDING OF [place] 09/22/2015 ALANNA EDGAR DO Ot Z48.812 ENCNTR FOR SURGICAL AFTCR FOLLOWING SURG 09/22/2015 ALANNA EDGAR DO Ot Z95.1 PRESENCE OF AORTOCORONARY BYPASS GRAFT 09/22/2015 JACEY RODRIGUEZ MD, FACCP CCDS Ot I25.10 ATHSCL HEART DISEASE OF [place] CORONARY 09/22/2015 JACEY RODRIGUEZ MD, FACCP CCDS Ot R55 SYNCOPE AND COLLAPSE 09/22/2015 JACEY RODRIGUEZ MD, FACCP CCDS Ot I25.10 ATHSCL HEART DISEASE OF [place] CORONARY 09/22/2015 JACEY RODRIGUEZ MD, FACCP CCDS Ot R55 SYNCOPE AND COLLAPSE 09/22/2015 LEAH STONE DO Ot I10 ESSENTIAL (PRIMARY) HYPERTENSION 09/22/2015 LEAH STONE DO Ot S06.5X0A TRAUM SUBDR HEM W/O LOSS OF CONSCIOUSNES 09/22/2015 LEAH STONE DO Ot W19.XXXA UNSPECIFIED FALL, INITIAL ENCOUNTER 09/22/2015 LEAH STONE DO Ot Y99.8 OTHER EXTERNAL CAUSE STATUS 09/22/2015 LEAH STONE DO Ot Z79.02 HAIRSPRING SETTER (CURRENT) USE OF ANTITHROMBOTI 09/22/2015 BERTHA LEAH Manish Ot Z79.82 HAIRSPRING SETTER (CURRENT) USE OF ASPIRIN 10/11/2015 ALANNA EDGAR DO Ot Z48.812 ENCNTR FOR SURGICAL AFTCR FOLLOWING SURG 10/11/2015 ALANNA EDGAR DO Ot Z95.1 PRESENCE OF AORTOCORONARY BYPASS GRAFT 10/12/2015 RONALDO CASEY DO Ot E78.5 HYPERLIPIDEMIA, UNSPECIFIED 10/12/2015 RONALDO CASEY DO Ot I10 ESSENTIAL (PRIMARY) HYPERTENSION 10/12/2015 RONALDO CASEY DO Ot I25.10 ATHSCL HEART DISEASE OF [place] CORONARY 10/12/2015 RONALDO CASEY DO Ot R20.2 PARESTHESIA OF SKIN 10/12/2015 RONALDO CASEY DO Ot Z86.73 PRSNL HX OF TIA (TIA), AND CEREB INFRC W 10/12/2015 RONALDO CASEY DO Ot Z95.1 PRESENCE OF AORTOCORONARY BYPASS GRAFT 10/23/2015 BERTHA LEAH Ot I10 ESSENTIAL (PRIMARY) HYPERTENSION 10/23/2015 BERTHA LEAH Hammond Ot S06.5X0A TRAUM SUBDR HEM W/O LOSS OF CONSCIOUSNES 10/23/2015 BERTHA CAMACHO LEAH Hammond Ot W19.XXXA UNSPECIFIED FALL, INITIAL ENCOUNTER 10/23/2015 LEAH STONE DO Ot Y99.8 OTHER EXTERNAL CAUSE STATUS 10/23/2015 BERTHA CAMACHO LEAH Hammond Ot Z79.02 HAIRSPRING SETTER (CURRENT) USE OF ANTITHROMBOTI 10/23/2015 LEAH STONE DO Ot Z79.82 SHELTER (CURRENT) USE OF ASPIRIN 11/05/2015 RONALDO CASEY DO Ot I10 ESSENTIAL (PRIMARY) HYPERTENSION 11/05/2015 RONALDO CASEY DO Ot I25.10 ATHSCL HEART DISEASE OF [place] CORONARY 11/05/2015 RONALDO CASEY DO Ot R41.0 DISORIENTATION, UNSPECIFIED 11/05/2015 RONALDO CASEY DO Ot R41.3 OTHER AMNESIA 11/05/2015 RONALDO CASEY DO Ot Z95.1 PRESENCE OF AORTOCORONARY BYPASS GRAFT 11/05/2015 Ot 781.91 LOSS OF HEIGHT 11/05/2015 Ot V17.81 FAMILY HISTORY, OSTEOPOROSIS 11/05/2015 Ot V82.81 SCREENING FOR OSTEOPOROSIS 11/05/2015 Ot 786.50 CHEST PAIN NOS 11/05/2015 JENNIFER DEL CID FACC, JACEY FACP CCDS Ot 272.4 HYPERLIPIDEMIA NEC/NOS 11/05/2015 JENNIFER DEL CID FACC, JACEY FACP CCDS Ot 414.01 CORONARY ATHEROSCLEROSIS OF [place] CORON 11/05/2015 [facility]ER DEL CID [facility], [facility] 511.9 PLEURAL EFFUSION NOS 11/05/2015 BLAIR MICHAEL DO Ot 272.4 HYPERLIPIDEMIA NEC/NOS 11/05/2015 BLAIR MICHAEL DO Ot 414.01 CORONARY ATHEROSCLEROSIS OF [place] CORON 11/05/2015 BLAIR MICHAEL DO Ot 780.54 HYPERSOMNIA, UNSPECIFIED 11/05/2015 BLAIR MICHAEL DO Ot 786.09 RESPIRATORY ABNORM NEC 11/05/2015 BLAIR MICHAEL DO Ot R06.00 DYSPNEA, UNSPECIFIED 11/05/2015 BLAIR MICHAEL DO Ot R91.8 OTHER NONSPECIFIC ABNORMAL FINDING OF [place] 11/05/2015 ALANNA EDGAR DO Ot Z48.812 ENCNTR FOR SURGICAL AFTCR FOLLOWING SURG 11/05/2015 ALANNA EDGAR DO Ot Z95.1 PRESENCE OF AORTOCORONARY BYPASS GRAFT 11/05/2015 JENNIFER DEL CID FACC, JACEY FACP CCDS Ot I25.10 ATHSCL HEART DISEASE OF [place] CORONARY 11/05/2015 JACEY RODRIGUEZ MD, FACCP CCDS Ot R55 SYNCOPE AND COLLAPSE 11/05/2015 JACEY RODRIGUEZ MD, FACCP CCDS Ot I25.10 ATHSCL HEART DISEASE OF [place] CORONARY 11/05/2015 JACEY RODRIGUEZ MD, FACCP CCDS Ot R55 SYNCOPE AND COLLAPSE 11/05/2015 RONALDO CASEY DO Ot I10 ESSENTIAL (PRIMARY) HYPERTENSION 11/05/2015 RONALDO CASEY DO Ot I25.10 ATHSCL HEART DISEASE OF [place] CORONARY 11/05/2015 CASEY DO, RONALDO Ot R41.0 DISORIENTATION, UNSPECIFIED 11/05/2015 CASEY DO, RONALDO Ot R41.3 OTHER AMNESIA 11/05/2015 CASEY DO, RONALDO Ot Z95.1 PRESENCE OF AORTOCORONARY BYPASS GRAFT 11/05/2015 CASEY DO, RONALDO Ot I10 ESSENTIAL (PRIMARY) HYPERTENSION 11/05/2015 CARMELA CAMACHO RONALDO Ot I25.10 ATHSCL HEART DISEASE OF [place] CORONARY 11/05/2015 CARMLEA CAMACHO, RONALDO Ot R41.0 DISORIENTATION, UNSPECIFIED 11/05/2015 CASEY DO, RONALDO Ot R41.3 OTHER AMNESIA 11/05/2015 CARMELA CAMACHO, RONALDO Ot Z95.1 PRESENCE OF AORTOCORONARY BYPASS GRAFT 12/20/2015 THALIA CAMARENA MD Ot E78.5 HYPERLIPIDEMIA, UNSPECIFIED 12/20/2015 THALIA CAMARENA MD Ot I10 ESSENTIAL (PRIMARY) HYPERTENSION 12/20/2015 THALIA CAMARENA MD Ot I25.10 ATHSCL HEART DISEASE OF [place] CORONARY 12/20/2015 THALIA CAMARENA MD Ot 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 12/20/2015 THALIA CAMARENA MD Ot R07.9 CHEST PAIN, UNSPECIFIED 12/20/2015 THALIA CAMARENA MD Ot Z82.49 FAMILY HX OF ISCHE[place] HEART DIS AND OTH DI 12/20/2015 THALIA CAMARENA MD Ot Z95.1 PRESENCE OF AORTOCORONARY BYPASS GRAFT 12/22/2015 THALIA CAMARENA MD Ot E78.5 HYPERLIPIDEMIA, UNSPECIFIED 12/22/2015 THALIA CAMARENA MD Ot I10 ESSENTIAL (PRIMARY) HYPERTENSION 12/22/2015 THALIA CAMARENA MD Ot I25.10 ATHSCL HEART DISEASE OF [place] CORONARY 12/22/2015 THALIA CAMARENA MD Ot 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 12/22/2015 THALIA CAMARENA MD Ot R07.9 CHEST PAIN, UNSPECIFIED 12/22/2015 THALIA CAMARENA MD Ot Z82.49 FAMILY HX OF ISCHE[place] HEART DIS AND OTH DI 12/22/2015 THALIA CAMARENA MD Ot Z95.1 PRESENCE OF AORTOCORONARY BYPASS GRAFT 02/17/2016 BERTHA DO, LEAH K Ot F41.9 ANXIETY DISORDER, UNSPECIFIED 02/17/2016 BERTHA DO, LEAH K Ot I10 ESSENTIAL (PRIMARY) HYPERTENSION 02/17/2016 BERTHA DO, LEAH K Ot I25.10 ATHSCL HEART DISEASE OF [place] CORONARY 02/17/2016 BERTHA DO, LEAH K Ot M47.892 OTHER SPONDYLOSIS, CERVICAL REGION 02/17/2016 BERTHA DO, LEAH K Ot R55 SYNCOPE AND COLLAPSE 02/17/2016 BERTHA DO, LEAH K Ot Z79.82 SHELTER (CURRENT) USE OF ASPIRIN 02/17/2016 BERTHA DO, LEAH K Ot Z79.899 OTHER HAIRSPRING SETTER (CURRENT) DRUG THERAPY 02/17/2016 BERTHA DO, LEAH K Ot Z95.1 PRESENCE OF AORTOCORONARY BYPASS GRAFT 02/18/2016 BERTHA DO, LEAH K Ot F41.9 ANXIETY DISORDER, UNSPECIFIED 02/18/2016 BERTHA DO, LEAH K Ot I10 ESSENTIAL (PRIMARY) HYPERTENSION 02/18/2016 BERTHA DO, LEAH K Ot I25.10 ATHSCL HEART DISEASE OF [place] CORONARY 02/18/2016 BERTHA DO, LEAH K Ot M47.892 OTHER SPONDYLOSIS, CERVICAL REGION 02/18/2016 BERTHA DO, LEAH K Ot R55 SYNCOPE AND COLLAPSE 02/18/2016 BERTHA DO, LEAH K Ot Z79.82 HAIRSPRING SETTER (CURRENT) USE OF ASPIRIN 02/18/2016 BERTHA DO, LEAH K Ot Z79.899 OTHER HAIRSPRING SETTER (CURRENT) DRUG THERAPY 02/18/2016 BERTHA DO, LEAH K Ot Z95.1 PRESENCE OF AORTOCORONARY BYPASS GRAFT 02/19/2016 BERTHA DO, LEAH K Ot F41.9 ANXIETY DISORDER, UNSPECIFIED 02/19/2016 BERTHA DO, LEAH K Ot I10 ESSENTIAL (PRIMARY) HYPERTENSION 02/19/2016 BERTHA DO, LEAH K Ot I25.10 ATHSCL HEART DISEASE OF [place] CORONARY 02/19/2016 BERTHA DO, LEAH K Ot M47.892 OTHER SPONDYLOSIS, CERVICAL REGION 02/19/2016 BERTHA DO, LEAH K Ot R55 SYNCOPE AND COLLAPSE 02/19/2016 BERTHA DO, LEAH K Ot Z79.82 HAIRSPRING SETTER (CURRENT) USE OF ASPIRIN 02/19/2016 LEAH STONE DO Ot Z79.899 OTHER HAIRSPRING SETTER (CURRENT) DRUG THERAPY 02/19/2016 LEAH STONE DO Ot Z95.1 PRESENCE OF AORTOCORONARY BYPASS GRAFT 03/11/2016 Ot 781.91 LOSS OF HEIGHT 03/11/2016 Ot V17.81 FAMILY HISTORY, OSTEOPOROSIS 03/11/2016 Ot V82.81 SCREENING FOR OSTEOPOROSIS 03/11/2016 Ot 786.50 CHEST PAIN NOS 03/11/2016 JENNIFER DEL CID FACC, JACEY FACP CCDS Ot 272.4 HYPERLIPIDEMIA NEC/NOS 03/11/2016 JENNIFER DEL CID FACC, JACEY FACP CCDS Ot 414.01 CORONARY ATHEROSCLEROSIS OF [place] CORON 03/11/2016 JACEY RODRIGUEZ MD, FACC FACP CCDS Ot 511.9 PLEURAL EFFUSION NOS 03/11/2016 BLAIR MICHAEL DO Ot 272.4 HYPERLIPIDEMIA NEC/NOS 03/11/2016 BLAIR MICHAEL DO Ot 414.01 CORONARY ATHEROSCLEROSIS OF [place] CORON 03/11/2016 BLAIR MICHAEL DO Ot 780.54 HYPERSOMNIA, UNSPECIFIED 03/11/2016 BLAIR MICHAEL DO Ot 786.09 RESPIRATORY ABNORM NEC 03/11/2016 BLAIR MICHAEL DO Ot R06.00 DYSPNEA, UNSPECIFIED 03/11/2016 BLAIR MICHAEL DO Ot R91.8 OTHER NONSPECIFIC ABNORMAL FINDING OF [place]GEN[place] 03/11/2016 ALANNA EDGAR DO Ot Z48.812 ENCNTR FOR SURGICAL AFTCR FOLLOWING SURG 03/11/2016 ALANNA EDGAR DO Ot Z95.1 PRESENCE OF AORTOCORONARY BYPASS GRAFT 03/11/2016 JACEY RODRIGUEZ MD, FACCP CCDS Ot I25.10 ATHSCL HEART DISEASE OF [place] CORONARY 03/11/2016 JACEY RODRIGUEZ MD, FACCP CCDS Ot R55 SYNCOPE AND COLLAPSE 03/11/2016 JACEY RODRIGUEZ MD, FACC FACP CCDS Ot I25.10 ATHSCL HEART DISEASE OF [place] CORONARY 03/11/2016 JACEY RODRIGUEZ MD, FACC FACP CCDS Ot R55 SYNCOPE AND COLLAPSE 03/14/2016 JACEY RODRIGUEZ MD, FACC FACP CCDS Ot E78.4 OTHER HYPERLIPIDEMIA 03/14/2016 JENNIFER DEL CID FACC, JACEY FACP CCDS Ot I25.10 ATHSCL HEART DISEASE OF [place] CORONARY 03/14/2016 JENNIFER DEL CID FACC, JACEY FACP CCDS Ot I95.1 ORTHOSTATIC HYPOTENSION 03/14/2016 JENNIFER DEL CID FACC, JACEY FACP CCDS Ot R55 SYNCOPE AND COLLAPSE 03/14/2016 Ot 781.91 LOSS OF HEIGHT 03/14/2016 Ot V17.81 FAMILY HISTORY, OSTEOPOROSIS 03/14/2016 Ot V82.81 SCREENING FOR OSTEOPOROSIS 03/14/2016 Ot 786.50 CHEST PAIN NOS 03/14/2016 JENNIFER DEL CID FACC, JACEY FACP CCDS Ot 272.4 HYPERLIPIDEMIA NEC/NOS 03/14/2016 JENNIFER DEL CID FACC, JACEY FACP CCDS Ot 414.01 CORONARY ATHEROSCLEROSIS OF [place] CORON 03/14/2016 JENNIFER DEL CID FACC, JACEY FACP CCDS Ot 511.9 PLEURAL EFFUSION NOS 03/14/2016 BLAIR MICHAEL DO Ot 272.4 HYPERLIPIDEMIA NEC/NOS 03/14/2016 BLAIR MICHAEL DO Ot 414.01 CORONARY ATHEROSCLEROSIS OF [place] CORON 03/14/2016 BLAIR MICHAEL DO Ot 780.54 HYPERSOMNIA, UNSPECIFIED 03/14/2016 BLAIR MICHAEL DO Ot 786.09 RESPIRATORY ABNORM NEC 03/14/2016 BLAIR MICHAEL DO Ot R06.00 DYSPNEA, UNSPECIFIED 03/14/2016 BLAIR MICHAEL DO Ot R91.8 OTHER NONSPECIFIC ABNORMAL FINDING OF [place]GEN[place] 03/14/2016 ALANNA EDGAR DO Ot Z48.812 ENCNTR FOR SURGICAL AFTCR FOLLOWING SURG 03/14/2016 ALANNA EDGAR DO Ot Z95.1 PRESENCE OF AORTOCORONARY BYPASS GRAFT 03/14/2016 JACEY RODRIGUEZ MD, FACC FACP CCDS Ot I25.10 ATHSCL HEART DISEASE OF [place] CORONARY 03/14/2016 JENNIFER DEL CID FACC, JACEY FACP CCDS Ot R55 SYNCOPE AND COLLAPSE 03/14/2016 JACEY RODRIGUEZ MD, FACC FACP CCDS Ot I25.10 ATHSCL HEART DISEASE OF [place] CORONARY 03/14/2016 JENNIFER DEL CID FACC, JACEY FACP CCDS Ot R55 SYNCOPE AND COLLAPSE 03/14/2016 JACEY RODRIGUEZ MD, FACC FACP CCDS Ot E78.4 OTHER HYPERLIPIDEMIA 03/14/2016 JENNIFER DEL CID FACC, JACEY FACP CCDS Ot I25.10 ATHSCL HEART DISEASE OF [place] CORONARY 03/14/2016 JENNIFER DEL CID FACC, ALI FACP CCDS Ot I95.1 ORTHOSTATIC HYPOTENSION 03/14/2016 JENNIFER DEL CID FACC, ALI FACP CCDS Ot R55 SYNCOPE AND COLLAPSE 03/14/2016 JENNIFER DEL CID FACC, ALI FACP CCDS Ot E78.4 OTHER HYPERLIPIDEMIA 03/14/2016 JENNIFER DEL CID FACC, ALI FACP CCDS Ot I25.10 ATHSCL HEART DISEASE OF [place] CORONARY 03/14/2016 JENNIFER DEL CID FACC, ALI FACP CCDS Ot I95.1 ORTHOSTATIC HYPOTENSION 03/14/2016 JENNIFER DEL CID FACC, ALI FACP CCDS Ot R55 SYNCOPE AND COLLAPSE 03/24/2016 JENNIFER DEL CID FACC, ALI FACP CCDS Ot E78.4 OTHER HYPERLIPIDEMIA 03/24/2016 JENNIFER DEL CID FACC, ALI FACP CCDS Ot I25.10 ATHSCL HEART DISEASE OF [place] CORONARY 03/24/2016 JENNIFER DEL CID FACAzalea, ALI FACP CCDS Ot I95.1 ORTHOSTATIC HYPOTENSION 03/24/2016 JENNIFER DEL CID FACAzalea, ALI FACP CCDS Ot R55 SYNCOPE AND COLLAPSE 06/25/2016 THALIA CAMARENA MD Ot E78.5 HYPERLIPIDEMIA, UNSPECIFIED 06/25/2016 THALIA CAMARENA MD Ot I10 ESSENTIAL (PRIMARY) HYPERTENSION 06/25/2016 THALIA CAMARENA MD Ot I25.10 ATHSCL HEART DISEASE OF [place] CORONARY 06/25/2016 THALIA CAMARENA MD Ot 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 06/25/2016 THALIA CAMARENA MD Ot R07.9 CHEST PAIN, UNSPECIFIED 06/25/2016 THALIA CAMARENA MD Ot E78.5 HYPERLIPIDEMIA, UNSPECIFIED 06/25/2016 THALIA CAMARENA MD Ot I10 ESSENTIAL (PRIMARY) HYPERTENSION 06/25/2016 THALIA CAMARENA MD Ot I25.10 ATHSCL HEART DISEASE OF [place] CORONARY 06/25/2016 THALIA CAMARENA MD Ot 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 06/25/2016 THALIA CAMARENA MD Ot R07.9 CHEST PAIN, UNSPECIFIED Procedures Results Test Result Range Complete blood count (CBC) with automated white blood cell (WBC) differential - 12/19/15 17:23 Blood leukocytes automated count (number/volume) 4.6 10*3/ uL 4.3-11.0 Blood erythrocytes automated count (number/volume) 4.47 10*6 /uL 4.35-5.85 Venous blood hemoglobin measurement (mass/volume) 13.4 g/dL 13.3-17.7 Blood hematocrit (volume fraction) 38 % 40-54 Automated erythrocyte mean corpuscular volume 86 [foz_us] 80-99 Automated erythrocyte mean corpuscular hemoglobin (mass per erythrocyte) 30 pg 25-34 Automated erythrocyte mean corpuscular hemoglobin concentration measurement ( mass/volume) 35 g/dL 32-36 Automated erythrocyte distribution width ratio 11.8 % 10.0-14.5 Automated blood platelet count (count/volume) 207 10*3/uL 130-400 Automated blood platelet mean volume measurement 9.1 [foz_us ] 7.4-10.4 Automated blood neutrophils/100 leukocytes 51 % 42-75 Automated blood lymphocytes/100 leukocytes 33 % 12-44 Blood monocytes/100 leukocytes 8 % 0-12 Automated blood eosinophils/100 leukocytes 7 % 0-10 Automated blood basophils/100 leukocytes 1 % 0-10 Blood neutrophils automated count (number/volume) 2.3 10*3 1.8-7.8 Blood lymphocytes automated count (number/volume) 1.5 10*3 1.0-4.0 Blood monocytes automated count (number/volume) 0.4 10*3 0.0-1.0 Automated eosinophil count 0.3 10*3/uL 0.0-0.3 Automated blood basophil count (count/volume) 0.1 10*3/uL 0.0-0.1 Comprehensive metabolic panel - 12/19/15 17:23 Serum or plasma sodium measurement (moles/volume) 136 mmol/ L 135-145 Serum or plasma potassium measurement (moles/volume) 4.5 mmol/L 3.6-5.0 Serum or plasma chloride measurement (moles/volume) 105 mmol /L 98-107 Carbon dioxide 27 mmol/L 21-32 Serum or plasma anion gap determination (moles/volume) 4 mmol/L 5-14 Serum or plasma urea nitrogen measurement (mass/volume) 16 mg/dL 7-18 Serum or plasma creatinine measurement (mass/volume) 1.26 mg /dL 0.60-1.30 Serum or plasma urea nitrogen/creatinine mass ratio 13 NRG Serum or plasma creatinine measurement with calculation of estimated glomerular filtration rate 57 NRG Serum or plasma glucose measurement (mass/volume) 90 mg/dL 70-105 Serum or plasma calcium measurement (mass/volume) 8.9 mg/dL 8.5-10.1 Serum or plasma total bilirubin measurement (mass/volume) 0.6 mg/dL 0.1-1.0 Serum or plasma alkaline phosphatase measurement (enzymatic activity/volume) 77 U/L 40-136 Serum or plasma aspartate aminotransferase measurement (enzymatic activity/ volume) 26 U/L 5-34 Serum or plasma alanine aminotransferase measurement (enzymatic activity/volume ) 25 U/L 0-55 Serum or plasma protein measurement (mass/volume) 6.6 g/dL 6.4-8.2 Serum or plasma albumin measurement (mass/volume) 3.9 g/dL 3.2-4.5 Serum or plasma troponin i.cardiac measurement (mass/volume) - 12/19/15 17:23 Serum or plasma troponin i.cardiac measurement (mass/volume) < ng/mL <0.30 PT panel in platelet poor plasma by coagulation assay - 12/19/15 23:25 Prothrombin time (PT) in platelet poor plasma by coagulation assay 14.0 s 12.2-14.7 INR in platelet poor plasma or blood by coagulation assay 1.1 0.8-1.4 Activated partial thromboplastin time (aPTT) in platelet poor plasma bycoagulation assay - 12/19/15 23:25 Activated partial thromboplastin time (aPTT) in platelet poor plasma bycoagulation assay 29 s 24-35 Serum or plasma troponin i.cardiac measurement (mass/volume) - 12/19/15 23:25 Serum or plasma troponin i.cardiac measurement (mass/volume) < ng/mL <0.30 Complete blood count (CBC) with automated white blood cell (WBC) differential - 12/20/15 04:30 Blood leukocytes automated count (number/volume) 5.5 10*3/ uL 4.3-11.0 Blood erythrocytes automated count (number/volume) 4.60 10*6 /uL 4.35-5.85 Venous blood hemoglobin measurement (mass/volume) 13.8 g/dL 13.3-17.7 Blood hematocrit (volume fraction) 40 % 40-54 Automated erythrocyte mean corpuscular volume 87 [foz_us] 80-99 Automated erythrocyte mean corpuscular hemoglobin (mass per erythrocyte) 30 pg 25-34 Automated erythrocyte mean corpuscular hemoglobin concentration measurement ( mass/volume) 35 g/dL 32-36 Automated erythrocyte distribution width ratio 11.8 % 10.0-14.5 Automated blood platelet count (count/volume) 193 10*3/uL 130-400 Automated blood platelet mean volume measurement 9.5 [foz_us ] 7.4-10.4 Automated blood neutrophils/100 leukocytes 46 % 42-75 Automated blood lymphocytes/100 leukocytes 36 % 12-44 Blood monocytes/100 leukocytes 10 % 0-12 Automated blood eosinophils/100 leukocytes 8 % 0-10 Automated blood basophils/100 leukocytes 1 % 0-10 Blood neutrophils automated count (number/volume) 2.5 10*3 1.8-7.8 Blood lymphocytes automated count (number/volume) 2.0 10*3 1.0-4.0 Blood monocytes automated count (number/volume) 0.6 10*3 0.0-1.0 Automated eosinophil count 0.4 10*3/uL 0.0-0.3 Automated blood basophil count (count/volume) 0.0 10*3/uL 0.0-0.1 Comprehensive metabolic panel - 12/20/15 04:30 Serum or plasma sodium measurement (moles/volume) 142 mmol/ L 135-145 Serum or plasma potassium measurement (moles/volume) 4.7 mmol/L 3.6-5.0 Serum or plasma chloride measurement (moles/volume) 109 mmol /L 98-107 Carbon dioxide 25 mmol/L 21-32 Serum or plasma anion gap determination (moles/volume) 8 mmol/L 5-14 Serum or plasma urea nitrogen measurement (mass/volume) 15 mg/dL 7-18 Serum or plasma creatinine measurement (mass/volume) 1.17 mg /dL 0.60-1.30 Serum or plasma urea nitrogen/creatinine mass ratio 13 NRG Serum or plasma creatinine measurement with calculation of estimated glomerular filtration rate > NRG Serum or plasma glucose measurement (mass/volume) 84 mg/dL 70-105 Serum or plasma calcium measurement (mass/volume) 9.4 mg/dL 8.5-10.1 Serum or plasma total bilirubin measurement (mass/volume) 0.7 mg/dL 0.1-1.0 Serum or plasma alkaline phosphatase measurement (enzymatic activity/volume) 74 U/L 40-136 Serum or plasma aspartate aminotransferase measurement (enzymatic activity/ volume) 29 U/L 5-34 Serum or plasma alanine aminotransferase measurement (enzymatic activity/volume ) 25 U/L 0-55 Serum or plasma protein measurement (mass/volume) 6.5 g/dL 6.4-8.2 Serum or plasma albumin measurement (mass/volume) 3.9 g/dL 3.2-4.5 Lipid 1996 panel - 12/20/15 04:30 Serum or plasma triglyceride measurement (mass/volume) 98 mg /dL <150 Serum or plasma cholesterol measurement (mass/volume) 139 mg /dL < 200 Serum or plasma cholesterol in HDL measurement (mass/volume) 37 mg/dL 40-60 Cholesterol in LDL [mass/volume] in serum or plasma by direct assay 86 mg/dL 1-129 Serum or plasma cholesterol in VLDL measurement (mass/volume) 20 mg/dL 5-40 Complete blood count (CBC) with automated white blood cell (WBC) differential - 02/17/16 18:32 Blood leukocytes automated count (number/volume) 6.0 10*3/ uL 4.3-11.0 Blood erythrocytes automated count (number/volume) 4.55 10*6 /uL 4.35-5.85 Venous blood hemoglobin measurement (mass/volume) 13.7 g/dL 13.3-17.7 Blood hematocrit (volume fraction) 39 % 40-54 Automated erythrocyte mean corpuscular volume 86 [foz_us] 80-99 Automated erythrocyte mean corpuscular hemoglobin (mass per erythrocyte) 30 pg 25-34 Automated erythrocyte mean corpuscular hemoglobin concentration measurement ( mass/volume) 35 g/dL 32-36 Automated erythrocyte distribution width ratio 11.6 % 10.0-14.5 Automated blood platelet count (count/volume) 195 10*3/uL 130-400 Automated blood platelet mean volume measurement 9.4 [foz_us ] 7.4-10.4 Automated blood neutrophils/100 leukocytes 55 % 42-75 Automated blood lymphocytes/100 leukocytes 28 % 12-44 Blood monocytes/100 leukocytes 10 % 0-12 Automated blood eosinophils/100 leukocytes 6 % 0-10 Automated blood basophils/100 leukocytes 1 % 0-10 Blood neutrophils automated count (number/volume) 3.3 10*3 1.8-7.8 Blood lymphocytes automated count (number/volume) 1.7 10*3 1.0-4.0 Blood monocytes automated count (number/volume) 0.6 10*3 0.0-1.0 Automated eosinophil count 0.4 10*3/uL 0.0-0.3 Automated blood basophil count (count/volume) 0.0 10*3/uL 0.0-0.1 PT panel in platelet poor plasma by coagulation assay - 02/17/16 18:32 Prothrombin time (PT) in platelet poor plasma by coagulation assay 12.6 s 12.2-14.7 INR in platelet poor plasma or blood by coagulation assay 1.0 0.8-1.4 Activated partial thromboplastin time (aPTT) in platelet poor plasma bycoagulation assay - 02/17/16 18:32 Activated partial thromboplastin time (aPTT) in platelet poor plasma bycoagulation assay 22 s 24-35 Comprehensive metabolic panel - 02/17/16 18:32 Serum or plasma sodium measurement (moles/volume) 138 mmol/ L 135-145 Serum or plasma potassium measurement (moles/volume) 4.5 mmol/L 3.6-5.0 Serum or plasma chloride measurement (moles/volume) 107 mmol /L 98-107 Carbon dioxide 21 mmol/L 21-32 Serum or plasma anion gap determination (moles/volume) 10 mmol/L 5-14 Serum or plasma urea nitrogen measurement (mass/volume) 16 mg/dL 7-18 Serum or plasma creatinine measurement (mass/volume) 1.21 mg /dL 0.60-1.30 Serum or plasma urea nitrogen/creatinine mass ratio 13 NRG Serum or plasma creatinine measurement with calculation of estimated glomerular filtration rate 60 NRG Serum or plasma glucose measurement (mass/volume) 104 mg/dL 70-105 Serum or plasma calcium measurement (mass/volume) 9.2 mg/dL 8.5-10.1 Serum or plasma total bilirubin measurement (mass/volume) 0.4 mg/dL 0.1-1.0 Serum or plasma alkaline phosphatase measurement (enzymatic activity/volume) 71 U/L 40-136 Serum or plasma aspartate aminotransferase measurement (enzymatic activity/ volume) 28 U/L 5-34 Serum or plasma alanine aminotransferase measurement (enzymatic activity/volume ) 27 U/L 0-55 Serum or plasma protein measurement (mass/volume) 7.2 g/dL 6.4-8.2 Serum or plasma albumin measurement (mass/volume) 4.2 g/dL 3.2-4.5 Magnesium - 02/17/16 18:32 Magnesium 2.1 mg/dL 1.8-2.4 Serum or plasma troponin i.cardiac measurement (mass/volume) - 02/17/16 18:32 Serum or plasma troponin i.cardiac measurement (mass/volume) < ng/mL <0.30 Complete blood count (CBC) with automated white blood cell (WBC) differential - 06/24/16 18:57 Blood leukocytes automated count (number/volume) 6.4 10*3/ uL 4.3-11.0 Blood erythrocytes automated count (number/volume) 4.92 10*6 /uL 4.35-5.85 Venous blood hemoglobin measurement (mass/volume) 14.9 g/dL 13.3-17.7 Blood hematocrit (volume fraction) 42 % 40-54 Automated erythrocyte mean corpuscular volume 84 [foz_us] 80-99 Automated erythrocyte mean corpuscular hemoglobin (mass per erythrocyte) 30 pg 25-34 Automated erythrocyte mean corpuscular hemoglobin concentration measurement ( mass/volume) 36 g/dL 32-36 Automated erythrocyte distribution width ratio 11.7 % 10.0-14.5 Automated blood platelet count (count/volume) 224 10*3/uL 130-400 Automated blood platelet mean volume measurement 9.3 [foz_us ] 7.4-10.4 Automated blood neutrophils/100 leukocytes 43 % 42-75 Automated blood lymphocytes/100 leukocytes 37 % 12-44 Blood monocytes/100 leukocytes 10 % 0-12 Automated blood eosinophils/100 leukocytes 8 % 0-10 Automated blood basophils/100 leukocytes 1 % 0-10 Blood neutrophils automated count (number/volume) 2.8 10*3 1.8-7.8 Blood lymphocytes automated count (number/volume) 2.4 10*3 1.0-4.0 Blood monocytes automated count (number/volume) 0.7 10*3 0.0-1.0 Automated eosinophil count 0.5 10*3/uL 0.0-0.3 Automated blood basophil count (count/volume) 0.1 10*3/uL 0.0-0.1 PT panel in platelet poor plasma by coagulation assay - 06/24/16 18:57 Prothrombin time (PT) in platelet poor plasma by coagulation assay 12.6 s 12.2-14.7 INR in platelet poor plasma or blood by coagulation assay 1.0 0.8-1.4 Activated partial thromboplastin time (aPTT) in platelet poor plasma bycoagulation assay - 06/24/16 18:57 Activated partial thromboplastin time (aPTT) in platelet poor plasma bycoagulation assay 28 s 24-35 Comprehensive metabolic panel - 06/24/16 18:57 Serum or plasma sodium measurement (moles/volume) 139 mmol/ L 135-145 Serum or plasma potassium measurement (moles/volume) 3.7 mmol/L 3.6-5.0 Serum or plasma chloride measurement (moles/volume) 108 mmol /L 98-107 Carbon dioxide 24 mmol/L 21-32 Serum or plasma anion gap determination (moles/volume) 7 mmol/L 5-14 Serum or plasma urea nitrogen measurement (mass/volume) 16 mg/dL 7-18 Serum or plasma creatinine measurement (mass/volume) 1.13 mg /dL 0.60-1.30 Serum or plasma urea nitrogen/creatinine mass ratio 14 NRG Serum or plasma creatinine measurement with calculation of estimated glomerular filtration rate > NRG Serum or plasma glucose measurement (mass/volume) 82 mg/dL 70-105 Serum or plasma calcium measurement (mass/volume) 9.2 mg/dL 8.5-10.1 Serum or plasma total bilirubin measurement (mass/volume) 0.5 mg/dL 0.1-1.0 Serum or plasma alkaline phosphatase measurement (enzymatic activity/volume) 89 U/L 40-136 Serum or plasma aspartate aminotransferase measurement (enzymatic activity/ volume) 24 U/L 5-34 Serum or plasma alanine aminotransferase measurement (enzymatic activity/volume ) 21 U/L 0-55 Serum or plasma protein measurement (mass/volume) 7.2 g/dL 6.4-8.2 Serum or plasma albumin measurement (mass/volume) 4.2 g/dL 3.2-4.5 Magnesium - 06/24/16 18:57 Magnesium 2.1 mg/dL 1.8-2.4 Serum or plasma troponin i.cardiac measurement (mass/volume) - 06/24/16 18:57 Serum or plasma troponin i.cardiac measurement (mass/volume) < ng/mL <0.30 Myoglobin, serum - 06/24/16 18:57 Myoglobin, serum 62.3 ng/mL 10.0-92.0 Complete blood count (CBC) with automated white blood cell (WBC) differential - 06/25/16 02:07 Blood leukocytes automated count (number/volume) 5.8 10*3/ uL 4.3-11.0 Blood erythrocytes automated count (number/volume) 4.32 10*6 /uL 4.35-5.85 Venous blood hemoglobin measurement (mass/volume) 13.1 g/dL 13.3-17.7 Blood hematocrit (volume fraction) 37 % 40-54 Automated erythrocyte mean corpuscular volume 85 [foz_us] 80-99 Automated erythrocyte mean corpuscular hemoglobin (mass per erythrocyte) 30 pg 25-34 Automated erythrocyte mean corpuscular hemoglobin concentration measurement ( mass/volume) 36 g/dL 32-36 Automated erythrocyte distribution width ratio 11.5 % 10.0-14.5 Automated blood platelet count (count/volume) 208 10*3/uL 130-400 Automated blood platelet mean volume measurement 9.5 [foz_us ] 7.4-10.4 Automated blood neutrophils/100 leukocytes 47 % 42-75 Automated blood lymphocytes/100 leukocytes 35 % 12-44 Blood monocytes/100 leukocytes 9 % 0-12 Automated blood eosinophils/100 leukocytes 8 % 0-10 Automated blood basophils/100 leukocytes 1 % 0-10 Blood neutrophils automated count (number/volume) 2.8 10*3 1.8-7.8 Blood lymphocytes automated count (number/volume) 2.0 10*3 1.0-4.0 Blood monocytes automated count (number/volume) 0.5 10*3 0.0-1.0 Automated eosinophil count 0.5 10*3/uL 0.0-0.3 Automated blood basophil count (count/volume) 0.0 10*3/uL 0.0-0.1 Serum or plasma creatine kinase measurement (enzymatic activity/volume) - 06/25 02:07 Serum or plasma creatine kinase measurement (enzymatic activity/volume) 98 U/L 30-200 Whole blood basic metabolic panel - 06/25/16 02:07 Serum or plasma sodium measurement (moles/volume) 139 mmol/ L 135-145 Serum or plasma potassium measurement (moles/volume) 3.9 mmol/L 3.6-5.0 Serum or plasma chloride measurement (moles/volume) 107 mmol /L 98-107 Carbon dioxide 25 mmol/L 21-32 Serum or plasma anion gap determination (moles/volume) 7 mmol/L 5-14 Serum or plasma urea nitrogen measurement (mass/volume) 15 mg/dL 7-18 Serum or plasma creatinine measurement (mass/volume) 1.11 mg /dL 0.60-1.30 Serum or plasma urea nitrogen/creatinine mass ratio 14 NRG Serum or plasma creatinine measurement with calculation of estimated glomerular filtration rate > NRG Serum or plasma glucose measurement (mass/volume) 83 mg/dL 70-105 Serum or plasma calcium measurement (mass/volume) 8.8 mg/dL 8.5-10.1 Serum or plasma phosphate measurement (mass/volume) - 06/25/16 02:07 Serum or plasma phosphate measurement (mass/volume) 2.8 mg/ dL 2.3-4.7 Magnesium - 06/25/16 02:07 Magnesium 2.3 mg/dL 1.8-2.4 Serum or plasma troponin i.cardiac measurement (mass/volume) - 06/25/16 02:07 Serum or plasma troponin i.cardiac measurement (mass/volume) < ng/mL <0.30 Lipid 1996 panel - 06/25/16 02:07 Serum or plasma triglyceride measurement (mass/volume) 88 mg /dL <150 Serum or plasma cholesterol measurement (mass/volume) 136 mg /dL < 200 Serum or plasma cholesterol in HDL measurement (mass/volume) 34 mg/dL 40-60 Cholesterol in LDL [mass/volume] in serum or plasma by direct assay 87 mg/dL 1-129 Serum or plasma cholesterol in VLDL measurement (mass/volume) 18 mg/dL 5-40 Lipid 1996 panel - 06/25/16 06:55 Serum or plasma triglyceride measurement (mass/volume) 107 mg/dL <150 Serum or plasma cholesterol measurement (mass/volume) 141 mg /dL < 200 Serum or plasma cholesterol in HDL measurement (mass/volume) 31 mg/dL 40-60 Cholesterol in LDL [mass/volume] in serum or plasma by direct assay 92 mg/dL 1-129 Serum or plasma cholesterol in VLDL measurement (mass/volume) 21 mg/dL 5-40 Serum or plasma troponin i.cardiac measurement (mass/volume) - 06/25/16 06:55 Serum or plasma troponin i.cardiac measurement (mass/volume) < ng/mL <0.30 Encounters ACCT No. Visit Date/Time Discharge Status Pt. Type Provider Facility Loc./Unit Complaint [id number] 06/24/2016 20:16:00 2016 11:15:00 DIS Inpatient THALIA CAMARENA MD [facility] ICU HYPERTENSION,CHEST PAIN [id number] 02/17/2016 17:45:00 2015 19:44:00 DIS Emergency LEAH STONE DO [facility] ER HIGH BP [id number] 12/19/2015 19:25:00 2015 10:24:00 DIS Inpatient THALIA CAMARENA MD [facility] ICU CHEST PAIN [id number] 11/04/2015 20:52:00 2015 14:34:00 DIS Inpatient RONALDO CASEY DO [facility] ICU HTN URGENCY,AMNESIA [id number] 10/11/2015 14:46:00 2015 11:10:00 DIS Inpatient RONALDO CASEY DO [facility] ICU SUBACUTE RESOLVING SUBDURAL HEMATURA WITH RECURREN [id number] 09/22/2015 15:49:00 2015 17:25:00 DIS Emergency LEAH STONE DO [facility] ER L SIDE ARM PAIN [id number] 05/13/2015 10:42:00 2014 00:01:00 DIS Outpatient ALANNA EDGAR DO [facility] CR STATUS POST ACB [id number] 02/11/2015 11:39:00 2014 00:01:00 DIS Outpatient ALANNA EDGAR DO [facility] CR STATUS POST ACB [id number] 01/12/2015 10:01:00 2014 23:59:59 CLS Outpatient BLAIR MICHAEL DO [facility] RAD EXCESSIVE SLEEPINESS, HLP,SNORING, CAD [id number] 01/02/2015 10:26:00 2014 23:59:59 CLS Outpatient JENNIFER DEL CID FACC, ALI FACP CCDS [facility] RAD CAD,HYPERLIPIDEMIA [id number] 03/11/2016 10:49:00 ACT Outpatient JENNIFER DEL CID FACC, ALI FACP CCDS [facility] CARD CAD IN [place] [id number] 06/23/2015 10:22:00 ACT Outpatient JENNIFER DEL CID FACC, ALI FACP CCDS [facility] CARD SYNCOPE [id number] 06/19/2015 13:14:00 ACT Outpatient JENNIFER DEL CID FACC, ALI FACP CCDS [facility] RAD NEUROCARDIOGINIC SYNCOPE,CAD IN [place] [id number] 05/18/2015 09:00:00 PEN Preadmit ALANNA EDGAR DO [facility] CR STATUS POST ACB [id number] 05/06/2015 10:21:00 ACT Outpatient BLAIR MICHAEL DO [facility] RAD PLEURAL EFFUSION,DYSPNEA,SUNDEEP ON CPAP [id number] 02/21/2015 20:18:00 Document Registration [id number] 07/25/2014 14:41:00 Document Registration [id number] 08/24/2012 09:56:00 Document Registration
--- NOTE | 2016-07-06 11:21 | Diagnostic Imaging Report ---
PROCEDURE: US abdomen complete. TECHNIQUE: Multiple real-time grayscale images were obtained over the abdomen in various projections. INDICATION: Abdominal pain. There are no previous abdominal ultrasound examinations available for comparison. There is no evidence for cholelithiasis or acute cholecystitis. The common bile duct is not well visualized due to bowel gas. The left lobe of the liver, the aorta and inferior vena cava, and the pancreas were also obscured by bowel gas. The right lobe of the liver is generally unremarkable. The right kidney and spleen are within normal limits. There is no mass or free fluid collection evident. IMPRESSION: 1. There is no acute abnormality of the abdomen although much of the abdomen is obscured by bowel gas. 2. If clinical concern regarding an underlying abnormality of the gallbladder persists, then a nuclear medicine hepatobiliary scan, would be recommended for further study. Dictated by: Dictated on workstation # [id number]
== END ==
LOC: RAD 08:57
PROVIDERS: ATTEND Internal Medicine
DX: R10.13 Epigastric pain (principal)
CPT/HCPCS: 76700

== ENCOUNTER → 2016-10-26 | Outpatient (CLI) | payer BC, MEDICARE ==
[~2016-10-26] MED LIST changes: +CATHETER FLUSH 10 ML SYR IV PRN
--- NOTE | 2016-10-26 13:53 | Diagnostic Imaging Report ---
CLINICAL INDICATION: Diagnosis code R10.13. Epigastric pain. COMPARISON: Ultrasound of the abdomen dated 07/06/2016. PROCEDURE: The patient was administered 4.84 millicuries of technetium 99m Choletec. After 60 minutes of the images, one can of Ensure was drink followed by another 60 minutes of imaging. A nuclear medicine hepatobiliary scan with ejection fraction was performed. FINDINGS: There is prompt uptake and excretion of radiotracer by the liver. Activity is visible in the gallbladder by 15 minutes and the small bowel by 60 minutes. Ejection fraction of the gallbladder is calculated at 23% (normal >35%). The gallbladder visibly empties on the scans following the ingestion of Ensure. IMPRESSION: Abnormal hepatobiliary scan with low gallbladder ejection fraction of 23%. Differential considerations include gallbladder dysmotility or chronic cholecystitis. Dictated by: Dictated on workstation # [id number]
== END ==
LOC: CARD 10:00
PROVIDERS: ATTEND Internal Medicine
DX: R10.13 Epigastric pain (principal); K82.8 Other specified diseases of gallbladder
CPT/HCPCS: 78227

== ENCOUNTER → 2016-12-01 | Outpatient (CLI) | payer BC, MEDICARE ==
[~2016-12-01] MED LIST changes: +BARIUM SUSPENSION 105% (LIQUID POLIBAR PLUS) 240 ML/DOSE PO ONE; +BARIUM SUSPENSION 60% (LIQUID EZ PAQUE) 240 ML DOSE PO ONE; -CATHETER FLUSH 10 ML SYR IV PRN; -METO-270 PO; +METO-387 PO
--- NOTE | 2016-12-01 10:07 | Diagnostic Imaging Report ---
EXAMINATION: Upper GI study, double contrast. Kettle Coordinator image of the abdomen was performed. After the oral administration of gas forming granules, the patient drank thick and thin barium with visualization under fluoroscopy, with spot images taken over the esophagus, stomach and duodenum and followed by overhead images in the chest and abdomen. INDICATION: Epigastric pain. FLUOROSCOPY TIME: 2 minutes and 2 seconds. FINDINGS: Kettle Coordinator images of the abdomen demonstrate small amount amount of fecal material with no abnormally dilated loops. The esophagus demonstrates normal caliber with no strictures. The mucosal pattern demonstrates no filling defects, diverticulum or ulceration. There is normal relaxation of the distal sphincter. There is no hiatal hernia. There is however reflux to the midesophagus noted multiple times during the exam. The stomach demonstrates normal distensibility with normal appearance of the mucosal folds. There are no ulcers or evidence of mass. The duodenal bulb and sweep appear normal. IMPRESSION: Multiple episodes of gastroesophageal reflux to the midesophagus was noted during the exam. Otherwise unremarkable double-contrast upper GI study. Dictated by: Dictated on workstation # [id number]
== END ==
LOC: RAD 07:58
PROVIDERS: ATTEND Internal Medicine Gastroenterology
DX: K21.9 Gastro-esophageal reflux disease without esophagitis (principal)
CPT/HCPCS: 74241

== ENCOUNTER → 2017-02-28 | Outpatient (CLI) | payer BC, MEDICARE ==
[~2017-02-28] MED LIST changes: -BARIUM SUSPENSION 105% (LIQUID POLIBAR PLUS) 240 ML/DOSE PO ONE; -BARIUM SUSPENSION 60% (LIQUID EZ PAQUE) 240 ML DOSE PO ONE; +METO-270 PO; -METO-387 PO
--- NOTE | 2017-02-28 15:19 | Diagnostic Imaging Report ---
Examination: Segmental lower extremity pressure assessment and ankle brachial index measurement. Post volume recording waveforms are also obtained in the lower extremities. Indication: Peripheral arterial disease Findings: Systolic pressure in the right Upper extremity is 167, and the left Upper extremity is 168 mmHg. RIGHT Lower extremity systolic pressures are: In the mid thigh 170 , in the upper calf 199, and at the ankle 204 PT, and 172 DP. . LEFT Lower extremity systolic pressures are: In the mid thigh 168 , in the upper calf 149, and at the ankle 189 PT, and 196 DP. 184 . NICCI on the right is 1.2, and on the left is 1.2. Pulse volume recordings waveforms demonstrate no significant dampening on either side. Impression: Unremarkable exam. Dictated by: Dictated on workstation # [id number]
== END ==
LOC: RAD 12:34
PROVIDERS: ATTEND Internal Medicine Cardiovascular Disease
DX: I73.9 Peripheral vascular disease, unspecified (principal); I25.10 Atherosclerotic heart disease of native coronary artery without angina pectoris
CPT/HCPCS: 93923

== ENCOUNTER → 2017-06-23 | Outpatient (CLI) | payer BC, MEDICARE ==
[~2017-06-23] MED LIST changes: -METO-270 PO; +METO-387 PO
--- NOTE | 2017-06-23 13:21 | Diagnostic Imaging Report ---
PROCEDURE: CT head without contrast. TECHNIQUE: Multiple contiguous axial images were obtained through the brain without the use of intravenous contrast. DATE: June 23, 2017. COMPARISON: CT head June 24, 2016. INDICATION: 67-year-old male, transient ischemic attack. History of stroke two years ago. Recent memory, speech, and vision difficulties. FINDINGS: There are postoperative related changes of the right frontal bone. There is complete opacification of the right frontal sinus. The left frontal sinus is hypoplastic. There is opacification of visualized portions of the right ethmoidal air cells and partial opacification of left ethmoidal air cells. The mastoid air cells and middle ears are well aerated. There is pneumatization of the right petrous apex. There is proportional prominence of the ventricles and CSF spaces consistent with mild cerebral volume loss. There is low-attenuation right subdural fluid measuring approximately 3.5 mm in thickness as measured on axial image 21. This is unchanged since at least June 24, 2016. There is no identified new or enlarging extra-axial fluid collection. There is no mass effect or midline shift. There is no acute intracranial hemorrhage. IMPRESSION: 1. No identified interval acute intracranial abnormality. 2. Unchanged size of the 3.5 mm low-attenuation right subdural fluid collection since at least June 24, 2016. 3. Mild cerebral volume loss. 4. Nonspecific paranasal sinus opacification which also appears present previously. Dictated by: Dictated on workstation # [id number]
== END ==
LOC: RAD 11:41
PROVIDERS: ATTEND Internal Medicine
DX: G45.9 Transient cerebral ischemic attack, unspecified (principal); G93.89 Other specified disorders of brain; J34.89 Other specified disorders of nose and nasal sinuses
CPT/HCPCS: 70450

== ENCOUNTER → 2017-06-23 | Outpatient (CLI) | payer BC, MEDICARE | LOC: CARD 12:47 | PROVIDERS: ATTEND Internal Medicine Cardiovascular Disease | DX: I25.10 Atherosclerotic heart disease of native coronary artery without angina pectoris (principal); I65.23 Occlusion and stenosis of bilateral carotid arteries; E78.4 Other hyperlipidemia; I10 Essential (primary) hypertension | CPT/HCPCS: 93306 ==

== ENCOUNTER 2017-07-19 21:03 | Emergency (ER) | payer BC, MEDICARE ==
[~2017-07-19] VITALS: Ht 177.8 cm; Wt 74.8 kg
--- OUTSIDE RECORDS SUMMARY | 2017-07-19 21:10 | XMS REPORT | Continuity of Care Document ---
Author Author [facility] Organization [facility] Address Unknown Phone Unavailable Allergies Active Description Code Type Severity Reaction Onset Reported/Identified Relationship to Patient Clinical Status Yes cefuroxime [id number] Drug Allergy Unknown N/A 09/22/2015 Yes Penicillins [id number] Drug Allergy Unknown N/A 09/22/2015 Yes levetiracetam [id number] Drug Allergy Mild N/A 10/11/2015 Medications There is no data. Problems Date Dx Coded Attending Type Code [...] CCDS Ot 414.01 01/12/2015 JENNIFER DEL CID FACC, ALI FACP CCDS Ot 511.9 01/14/2015 Ot 781.91 01/14/2015 Ot V17.81 01/14/2015 Ot V82.81 01/14/2015 Ot 786.50 01/14/2015 ALANNA EDGAR DO Ot V45.81 01/14/2015 ALANNA EDGAR DO Ot V57.89 01/14/2015 JENNIFER DEL CID FACC, ALI FACP CCDS Ot 272.4 01/14/2015 JENNIFER DEL CID FACC, ALI FACP CCDS Ot 414.01 01/14/2015 JENNIFER DEL CID FACC, ALI FACP CCDS Ot 511.9 01/15/2015 JENNIFER DEL CID FACC, ALI FACP CCDS Ot 272.4 01/15/2015 JENNIFER DEL CID [facility], ALI FACP CCDS Ot 414.01 01/15/2015 JENNIFER DEL CID [facility], ALI FACP CCDS Ot 511.9 01/27/2015 ALANNA EDGAR DO Ot V45.81 01/27/2015 ALANNA EDGAR DO Ot V57.89 01/27/2015 JENNIFER DEL CID [facility], ALI FACP CCDS Ot 272.4 01/27/2015 JENNIFER DEL CID [facility], ALI FACP CCDS Ot 414.01 01/27/2015 JENNIFER DEL CID [facility], ALI FACP CCDS Ot 511.9 01/29/2015 BLAIR MICHAEL DO Ot 272.4 01/29/2015 BLAIR MICHAEL DO Ot 414.01 01/29/2015 BLAIR MICHAEL DO Ot 780.54 01/29/2015 BLAIR MICHAEL DO Ot 786.09 01/29/2015 Ot 781.91 01/29/2015 Ot V17.81 01/29/2015 Ot V82.81 01/29/2015 Ot 786.50 01/29/2015 ALANNA EDGAR DO Ot V45.81 01/29/2015 ALANNA EDGAR DO Ot V57.89 01/29/2015 JENNIFER MCCRAYC, ALI FACP CCDS Ot 272.4 01/29/2015 JENNIFER DEL CID [facility], ALI [facility] CCDS Ot 414.01 01/29/2015 JENNIFER DEL CID FAC, [facility] CCDS Ot 511.9 01/29/2015 FERNANDA BLAIR Stan Ot 272.4 01/29/2015 FERNANDA BLAIR Pierce Ot 414.01 01/29/2015 FERNANDA BLAIR Pierce Ot 780.54 01/29/2015 LEONEL MICHAEL DOCAMERON Pierce Ot 786.09 02/06/2015 ALANNA EDGAR DO Ot V45.81 02/06/2015 ALANNA EDGAR DO Ot V57.89 02/06/2015 LEONEL MICHAEL DOCAMERON Pierce Ot 272.4 02/06/2015 FERNANDA CAMACHO BLAIR Pierce Ot 414.01 02/06/2015 FERNANDA CAMACHO BLAIR Pierce Ot 780.54 02/06/2015 BLAIR MICHAEL DO Ot 786.09 02/11/2015 ALANNA EDGAR DO Ot V45.81 AORTOCORONARY BYPASS 02/11/2015 ALANNA EDGAR DO Ot V57.89 REHABILITATION PROC [facility] 02/14/2015 ALANNA EDGAR DO Ot V45.81 02/14/2015 [...] 03/26/2015 ALANNA EDGAR DO Ot Z95.1 03/26/2015 EDGAR ALANNA Aguilar Ot Z48.812 03/26/2015 EDGAR ALANNA Aguilar Ot Z95.1 04/01/2015 HERVE CAMACHO ALANNA Aguilar Ot Z48.812 04/01/2015 EDGARROSCOE CAMACHO ALANNA Aguilar Ot Z95.1 05/11/2015 Ot 781.91 05/11/2015 Ot V17.81 05/11/2015 Ot V82.81 05/11/2015 Ot 786.50 05/11/2015 JENNIFER MCCRAY, ALI [facility] CCDS Ot 272.4 05/11/2015 JENNIFER DEL CID FACC, ALI [facility] CCDS Ot 414.01 05/11/2015 JENNIFER DEL CID FACC, ALI [facility] CCDS Ot 511.9 05/11/2015 BLAIR MICHAEL DO Ot 272.4 05/11/2015 BLAIR MICHAEL DO Ot 414.01 05/11/2015 BLAIR MICHAEL DO Ot 780.54 05/11/2015 BLAIR MICHAEL DO Ot 786.09 05/11/2015 HERVE CAMACHO ALANNA Lauren Ot Z48.812 05/11/2015 HERVE CAMACHO ALANNA Lauren Ot Z95.1 05/11/2015 BLAIR MICHAEL DO Ot R06.00 05/11/2015 BLAIR MICHAEL DO Ot R91.8 05/14/2015 ALANNA EDGAR DO Ot Z48.812 ENCNTR FOR SURGICAL AFTCR FOLLOWING SURG 05/14/2015 ALANNA EDGAR DO Ot Z95.1 PRESENCE OF AORTOCORONARY BYPASS GRAFT 05/19/2015 ALANNA EDGAR DO Ot Z48.812 05/19/2015 HERVE CAMACHO ALANNA Lauren Ot Z95.1 05/19/2015 BLAIR MICHAEL DO Ot R06.00 05/19/2015 BLAIR MICHAEL DO Ot R91.8 06/23/2015 Ot 781.91 06/23/2015 Ot V17.81 06/23/2015 Ot V82.81 06/23/2015 Ot 786.50 06/23/2015 JENNIFER DEL CID FACC, ALI [facility] CCDS Ot 272.4 06/23/2015 JENNIFER DEL CID FACC, ALI FACP CCDS Ot 414.01 06/23/2015 JENNIFER DEL CID [facility], ALI FACP CCDS Ot 511.9 06/23/2015 FERNANDA CAMACHO BLAIR Pierce Ot 272.4 06/23/2015 FERNANDA BLAIR M Ot 414.01 06/23/2015 FERNANDA BLAIR Pierce Ot 780.54 06/23/2015 FERNANDA CAMACHO BLAIR Pierce Ot 786.09 06/23/2015 FERNANDA CAMACHO BLAIR Pierce Ot R06.00 06/23/2015 FERNANDA CAMACHO BLAIR Stan Ot R91.8 06/23/2015 ALANNA EDGAR DO Ot Z48.812 06/23/2015 ALANNA EDGAR DO Ot Z95.1 07/02/2015 JENNIFER DEL CID [facility], ALI FACP CCDS Ot I25.10 07/02/2015 JENNIFER DEL CID [facility], ALI FACP CCDS Ot R55 07/13/2015 JENNIFER DEL CID [facility], ALI FACP CCDS Ot I25.10 07/13/2015 JENNIFER DEL CID [facility], ALI FACP CCDS Ot R55 07/22/2015 JENNIFER DEL CID [facility], ALI FACP CCDS Ot I25.10 07/22/2015 JENNIFER DEL CID [facility], ALI FACP CCDS Ot R55 08/10/2015 Ot 781.91 08/10/2015 Ot V17.81 08/10/2015 Ot V82.81 08/10/2015 Ot 786.50 08/10/2015 JENNIFER DEL CID [facility], ALI FACP CCDS Ot 272.4 08/10/2015 JENNIFER DEL CID [facility], ALI FACP CCDS Ot 414.01 08/10/2015 JENNIFER DEL CID [facility], ALI FACP CCDS Ot 511.9 08/10/2015 FERNANDA CAMACHO BLAIR M Ot 272.4 08/10/2015 FERNANDA CAMACHO BLAIR M Ot 414.01 08/10/2015 FERNANDA CAMACHO BLAIR Pierce Ot 780.54 08/10/2015 FERNANDA CAMACHO BLAIR M Ot 786.09 08/10/2015 FERNANDA CAMACHO BLAIR Stan Ot R06.00 08/10/2015 FERNANDA CAMACHO BLAIR Pierce [...] FACP CCDS Ot 414.01 CORONARY ATHEROSCLEROSIS OF [place] CORON 09/18/2015 JENNIFER DEL CID FACC, JACEY FACP CCDS Ot 511.9 PLEURAL EFFUSION NOS 09/18/2015 BLAIR MICHAEL DO Ot 272.4 HYPERLIPIDEMIA NEC/NOS 09/18/2015 BLAIR MICHAEL DO Ot 414.01 CORONARY ATHEROSCLEROSIS OF [place] CORON 09/18/2015 BLAIR MICHAEL DO Ot 780.54 [...] CCDS Ot I25.10 ATHSCL HEART DISEASE OF [place] CORONARY 09/18/2015 JENNIFER DEL CID FACC, JACEY FACP CCDS Ot R55 SYNCOPE AND COLLAPSE 09/18/2015 JENNIFER DEL CID FACC, JACEY FACP CCDS Ot I25.10 ATHSCL HEART DISEASE OF [place] CORONARY 09/18/2015 JENNIFER DEL CID FACC, JACEY [...] NOS 09/22/2015 JENNIFER DEL CID FACC, JACEY [facility] CCDS Ot 272.4 HYPERLIPIDEMIA NEC/NOS 09/22/2015 JENNIFER DEL CID FACC, JACEY MCCRAYP CCDS Ot 414.01 CORONARY ATHEROSCLEROSIS OF [place] CORON 09/22/2015 JENNIFER DEL CID FACC, JACEY [facility] CCDS Ot 511.9 PLEURAL EFFUSION NOS 09/22/2015 BLAIR MICHAEL DO Ot 272.4 HYPERLIPIDEMIA NEC/NOS 09/22/2015 BLAIR MICHAEL DO Ot 414.01 CORONARY ATHEROSCLEROSIS OF [place] CORON 09/22/2015 BLAIR MICHAEL DO Ot 780.54 HYPERSOMNIA, UNSPECIFIED 09/22/2015 BLAIR MICHAEL DO Ot 786.09 RESPIRATORY ABNORM NEC 09/22/2015 BLAIR MICHAEL DO Ot R06.00 DYSPNEA, UNSPECIFIED 09/22/2015 BLAIR MICHAEL DO Ot R91.8 OTHER NONSPECIFIC ABNORMAL FINDING OF EUGEN[place] 09/22/2015 ALANNA EDGAR DO Ot Z48.812 ENCNTR FOR SURGICAL AFTCR FOLLOWING SURG 09/22/2015 ALANNA EDGAR DO Ot Z95.1 PRESENCE OF AORTOCORONARY BYPASS GRAFT 09/22/2015 JENNIFER DEL CID FACC, JACEY MCCRAY CCDS Ot I25.10 ATHSCL HEART DISEASE OF [place] CORONARY 09/22/2015 JENNIFER DEL CID FACC, JACEY MCCRAYP CCDS Ot R55 SYNCOPE AND COLLAPSE 09/22/2015 JENNIFER DEL CID FACC, JACEY MCCRAYP CCDS Ot I25.10 ATHSCL HEART DISEASE OF [place] CORONARY 09/22/2015 JENNIFER DEL CID FACC, JACEY [facility] CCDS Ot R55 SYNCOPE AND COLLAPSE 09/22/2015 LEAH STONE DO Ot I10 ESSENTIAL (PRIMARY) HYPERTENSION 09/22/2015 LEAH STONE DO Ot S06.5X0A TRAUM SUBDR HEM W/O LOSS OF CONSCIOUSNES 09/22/2015 LEAH STONE DO Ot W19.XXXA UNSPECIFIED FALL, INITIAL ENCOUNTER 09/22/2015 LEAH STONE DO Ot Y99.8 OTHER EXTERNAL CAUSE STATUS 09/22/2015 LEAH STONE DO Ot Z79.02 SENIOR CARE (CURRENT) USE OF ANTITHROMBOTI 09/22/2015 BERTHA LEAH Manish Ot Z79.82 SENIOR CARE (CURRENT) USE OF ASPIRIN 10/11/2015 ALANNA EDGAR DO Ot Z48.812 ENCNTR FOR SURGICAL AFTCR FOLLOWING SURG 10/11/2015 ALANNA EDGAR DO Ot Z95.1 PRESENCE OF AORTOCORONARY BYPASS GRAFT 10/12/2015 RONALDO CASEY DO Ot E78.5 HYPERLIPIDEMIA, UNSPECIFIED 10/12/2015 RONALDO CASEY DO Ot I10 ESSENTIAL (PRIMARY) HYPERTENSION 10/12/2015 RONALDO CASEY DO Ot I25.10 ATHSCL HEART DISEASE OF [place] CORONARY 10/12/2015 RONALDO CASEY DO Ot R20.2 PARESTHESIA OF SKIN 10/12/2015 RNOALDO CASEY DO Ot Z86.73 PRSNL HX OF TIA (TIA), AND CEREB INFRC W 10/12/2015 RONALDO CASEY DO Ot Z95.1 PRESENCE OF AORTOCORONARY BYPASS GRAFT 10/23/2015 BERTHA LEAH Ot I10 ESSENTIAL (PRIMARY) HYPERTENSION 10/23/2015 BERTHA LEAH Hammond Ot S06.5X0A TRAUM SUBDR HEM W/O LOSS OF CONSCIOUSNES 10/23/2015 LEAH STONE DO Ot W19.XXXA UNSPECIFIED FALL, INITIAL ENCOUNTER 10/23/2015 LEAH STONE DO Ot Y99.8 OTHER EXTERNAL CAUSE STATUS 10/23/2015 BERTHA CAMACHO LEAH Hammond Ot Z79.02 LEGAL COUNSEL (CURRENT) USE OF ANTITHROMBOTI 10/23/2015 LEAH STONE DO Ot Z79.82 LEGAL COUNSEL (CURRENT) USE OF ASPIRIN 11/05/2015 RONALDO CASEY DO Ot I10 ESSENTIAL (PRIMARY) HYPERTENSION 11/05/2015 RONALDO CASEY DO Ot I25.10 ATHSCL HEART DISEASE OF [place] CORONARY 11/05/2015 RONALDO CASEY DO Ot R41.0 [...] FACP CCDS Ot 414.01 CORONARY ATHEROSCLEROSIS OF [place] CORON 11/05/2015 JENNIFER DEL CID FACC, JACEY [facility] CCDS Ot 511.9 PLEURAL EFFUSION NOS 11/05/2015 BLAIR MICHAEL DO Ot 272.4 HYPERLIPIDEMIA NEC/NOS 11/05/2015 BLAIR MICHAEL DO Ot 414.01 CORONARY ATHEROSCLEROSIS OF [place] CORON 11/05/2015 BLAIR MICHAEL DO Ot 780.54 [...] GRAFT 11/05/2015 JENNIFER DEL CID FACC, JACEY MCCRAYP CCDS Ot I25.10 ATHSCL HEART DISEASE OF [place] CORONARY 11/05/2015 JENNIFER DEL CID FACC, JACEY FACP CCDS Ot R55 SYNCOPE AND COLLAPSE 11/05/2015 JENNIFER DEL CID FACC, JACEY MCCRAYP CCDS Ot I25.10 ATHSCL HEART DISEASE OF [place] CORONARY 11/05/2015 JENNIFER DEL CID FACC, JACEY FACP CCDS Ot R55 SYNCOPE AND COLLAPSE 11/05/2015 RONALDO CASEY DO Ot I10 ESSENTIAL (PRIMARY) HYPERTENSION 11/05/2015 RONALDO CASEY DO Ot I25.10 ATHSCL HEART DISEASE OF [place] CORONARY 11/05/2015 CASEY DO, RONALDO Ot R41.0 DISORIENTATION, UNSPECIFIED 11/05/2015 CASEY DO, RONALDO Ot R41.3 OTHER AMNESIA 11/05/2015 CARMELA CAMACHO RONALDO Ot Z95.1 PRESENCE OF AORTOCORONARY BYPASS GRAFT 11/05/2015 CARMELA CAMACHO RONALDO Ot I10 ESSENTIAL (PRIMARY) HYPERTENSION 11/05/2015 CASEY DO RONALDO Ot I25.10 ATHSCL HEART DISEASE OF [place] CORONARY 11/05/2015 CASEY DO, RONALDO Ot R41.0 DISORIENTATION, UNSPECIFIED 11/05/2015 CASEY DO RONALDO Ot R41.3 OTHER AMNESIA 11/05/2015 CARMELA CAMACHO RONALDO Ot Z95.1 PRESENCE OF AORTOCORONARY BYPASS GRAFT 12/20/2015 THALIA CAMARENA MD Ot E78.5 HYPERLIPIDEMIA, UNSPECIFIED 12/20/2015 THALIA CAMARENA MD Ot I10 ESSENTIAL (PRIMARY) HYPERTENSION 12/20/2015 THALIA CAMARENA MD Ot I25.10 ATHSCL HEART DISEASE OF [place] CORONARY 12/20/2015 THALIA CAMARENA MD Ot I25.810 [...] Ot I10 ESSENTIAL (PRIMARY) HYPERTENSION 12/22/2015 THALIA CMAARENA MD Ot I25.10 ATHSCL HEART DISEASE OF [place] CORONARY 12/22/2015 THALIA CAMARENA MD Ot I25.810 [...] K Ot I25.10 ATHSCL HEART DISEASE OF [place] CORONARY 02/17/2016 BERTHA DO, LEAH K Ot M47.892 OTHER SPONDYLOSIS, CERVICAL REGION 02/17/2016 BERTHA DO, LEAH K Ot R55 SYNCOPE AND COLLAPSE 02/17/2016 BERTHA DO, LEAH K Ot Z79.82 LEGAL COUNSEL (CURRENT) USE OF ASPIRIN 02/17/2016 BERTHA DO, LEAH K Ot Z79.899 OTHER SENIOR CARE (CURRENT) DRUG THERAPY 02/17/2016 BERTHA DO, LEAH K Ot Z95.1 PRESENCE OF AORTOCORONARY BYPASS GRAFT 02/18/2016 BERTHA DO, LEAH K Ot F41.9 ANXIETY DISORDER, UNSPECIFIED 02/18/2016 BERTHA DO, LEAH K Ot I10 ESSENTIAL (PRIMARY) HYPERTENSION 02/18/2016 BERTHA DO, LEAH K Ot I25.10 ATHSCL HEART DISEASE OF [place] CORONARY 02/18/2016 BERTHA DO, LEAH K Ot M47.892 OTHER SPONDYLOSIS, CERVICAL REGION 02/18/2016 BERTHA DO, LEAH K Ot R55 SYNCOPE AND COLLAPSE 02/18/2016 BERTHA DO, LEAH K Ot Z79.82 LEGAL COUNSEL (CURRENT) USE OF ASPIRIN 02/18/2016 BERTHA DO, LEAH K Ot Z79.899 OTHER LEGAL COUNSEL (CURRENT) DRUG THERAPY 02/18/2016 BERTHA DO, LEAH K Ot Z95.1 PRESENCE OF AORTOCORONARY BYPASS GRAFT 02/19/2016 BERTHA DO, LEAH K Ot F41.9 ANXIETY DISORDER, UNSPECIFIED 02/19/2016 BERTHA DO, LEAH K Ot I10 ESSENTIAL (PRIMARY) HYPERTENSION 02/19/2016 BERTHA DO, LEAH K Ot I25.10 ATHSCL HEART DISEASE OF [place] CORONARY 02/19/2016 BERTHA DO, LEAH K Ot M47.892 OTHER SPONDYLOSIS, CERVICAL REGION 02/19/2016 BERTHA DO, LEAH K Ot R55 SYNCOPE AND COLLAPSE 02/19/2016 BERTHA DO, LEAH K Ot Z79.82 SENIOR CARE (CURRENT) USE OF ASPIRIN 02/19/2016 LEAH STONE DO Ot Z79.899 OTHER SENIOR CARE (CURRENT) DRUG THERAPY 02/19/2016 LEAH STONE DO Ot Z95.1 PRESENCE OF AORTOCORONARY BYPASS GRAFT 03/11/2016 Ot 781.91 LOSS OF HEIGHT 03/11/2016 Ot V17.81 FAMILY HISTORY, OSTEOPOROSIS 03/11/2016 Ot V82.81 SCREENING FOR OSTEOPOROSIS 03/11/2016 Ot 786.50 CHEST PAIN NOS 03/11/2016 JENNIFER DEL CID FACC, JACEY FACP CCDS Ot 272.4 HYPERLIPIDEMIA NEC/NOS 03/11/2016 JENNIFER DEL CID FACC, JACEY FACP CCDS Ot 414.01 CORONARY ATHEROSCLEROSIS OF [place] CORON 03/11/2016 JENNIFER DEL CID FACC, JACEY FACP CCDS Ot 511.9 PLEURAL EFFUSION NOS 03/11/2016 BLAIR MICHAEL DO Ot 272.4 HYPERLIPIDEMIA NEC/NOS 03/11/2016 BLAIR MICHAEL DO Ot 414.01 CORONARY ATHEROSCLEROSIS OF [place] CORON 03/11/2016 BLAIR MICHAEL DO Ot 780.54 HYPERSOMNIA, UNSPECIFIED 03/11/2016 BLAIR MICHAEL DO Ot 786.09 RESPIRATORY ABNORM NEC 03/11/2016 BLAIR MICHAEL DO Ot R06.00 DYSPNEA, UNSPECIFIED 03/11/2016 BLAIR MICHAEL DO Ot R91.8 OTHER NONSPECIFIC ABNORMAL FINDING OF EUGENIE 03/11/2016 ALANNA EDGAR DO Ot Z48.812 ENCNTR FOR SURGICAL AFTCR FOLLOWING SURG 03/11/2016 ALANNA EDGAR DO Ot Z95.1 PRESENCE OF AORTOCORONARY BYPASS GRAFT 03/11/2016 JENNIFER DEL CID FACC, JACEY FACP CCDS Ot I25.10 ATHSCL HEART DISEASE OF [place] CORONARY 03/11/2016 JENNIFER DEL CID FACC, JACEY FACP CCDS Ot R55 SYNCOPE AND COLLAPSE 03/11/2016 JENNIFER DEL CID FACC, JACEY FACP CCDS Ot I25.10 ATHSCL HEART DISEASE OF [place] CORONARY 03/11/2016 JENNIFER DEL CID FACC, JACEY FACP CCDS Ot R55 SYNCOPE AND COLLAPSE 03/14/2016 JENNIFER DEL CID FACC, JACEY FACP CCDS Ot E78.4 OTHER HYPERLIPIDEMIA 03/14/2016 JENNIFER DEL CID FACC, JACEY FACP CCDS Ot I25.10 ATHSCL HEART DISEASE OF [place] CORONARY 03/14/2016 JENNIFER DEL CID FACC, JACEY [...] FACP CCDS Ot 414.01 CORONARY ATHEROSCLEROSIS OF [place] CORON 03/14/2016 JENNIFER DEL CID FACC, JACEY FACP CCDS Ot 511.9 PLEURAL EFFUSION NOS 03/14/2016 BLAIR MICHAEL DO Ot 272.4 HYPERLIPIDEMIA NEC/NOS 03/14/2016 BLAIR MICHAEL DO Ot 414.01 CORONARY ATHEROSCLEROSIS OF [place] CORON 03/14/2016 BLAIR MICHAEL DO Ot 780.54 HYPERSOMNIA, UNSPECIFIED 03/14/2016 BLAIR MICHAEL DO Ot 786.09 RESPIRATORY ABNORM NEC 03/14/2016 BLAIR MICHAEL DO Ot R06.00 DYSPNEA, UNSPECIFIED 03/14/2016 BLAIR MICHAEL DO Ot R91.8 OTHER NONSPECIFIC ABNORMAL FINDING OF [place]GEN[place] 03/14/2016 ALANNA EDGAR DO Ot Z48.812 ENCNTR FOR SURGICAL AFTCR FOLLOWING SURG 03/14/2016 ALANNA EDGAR DO Ot Z95.1 PRESENCE OF AORTOCORONARY BYPASS GRAFT 03/14/2016 JENNIFER DEL CID FACC, JACEY FACP CCDS Ot I25.10 ATHSCL HEART DISEASE OF [place] CORONARY 03/14/2016 JENNIFER DEL CID FACC, JACEY FACP CCDS Ot R55 SYNCOPE AND COLLAPSE 03/14/2016 JENNIFER DEL CID FACC, JACEY FACP CCDS Ot I25.10 ATHSCL HEART DISEASE OF [place] CORONARY 03/14/2016 JENNIFER DEL CID FACC, JACEY FACP CCDS Ot R55 SYNCOPE AND COLLAPSE 03/14/2016 JENNIFER DEL CID FACC, JACEY FACP CCDS Ot E78.4 OTHER HYPERLIPIDEMIA 03/14/2016 JENNIFER DEL CID FACC, JACEY FACP CCDS Ot I25.10 ATHSCL HEART DISEASE OF [place] CORONARY 03/14/2016 JENNIFER DEL CID FACC, ALI FACP CCDS Ot I95.1 ORTHOSTATIC HYPOTENSION 03/14/2016 JENNIFER DEL CID FACC, ALI FACP CCDS Ot R55 SYNCOPE AND COLLAPSE 03/14/2016 JENNIFER MD FACC, ALI FACP CCDS Ot E78.4 OTHER HYPERLIPIDEMIA 03/14/2016 JENNIFER MD FACC, ALI FACP CCDS Ot I25.10 ATHSCL HEART DISEASE OF [place] CORONARY 03/14/2016 JENNIFER MD FACC, ALI FACP CCDS Ot I95.1 ORTHOSTATIC HYPOTENSION 03/14/2016 JENNIFER MD FACC, ALI FACP CCDS Ot R55 SYNCOPE AND COLLAPSE 03/24/2016 JENNIFER MD FACC, ALI FACP CCDS Ot E78.4 OTHER HYPERLIPIDEMIA 03/24/2016 JENNIFER MD FACC, ALI FACP CCDS Ot I25.10 ATHSCL HEART DISEASE OF [place] CORONARY 03/24/2016 JENNIFER DEL CID FACC, ALI FACP CCDS Ot I95.1 ORTHOSTATIC HYPOTENSION 03/24/2016 JENNIFER DEL CID FACC, ALI FACP CCDS Ot R55 SYNCOPE AND COLLAPSE 06/25/2016 THALIA CAMARENA MD Ot E78.5 HYPERLIPIDEMIA, UNSPECIFIED 06/25/2016 THALIA CAMARENA MD Ot I10 ESSENTIAL (PRIMARY) HYPERTENSION 06/25/2016 THALIA CAMARENA MD Ot I25.10 ATHSCL HEART DISEASE OF [place] CORONARY 06/25/2016 THALIA CAMARENA MD Ot 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 06/25/2016 THALIA CAMARENA MD Ot R07.9 CHEST PAIN, UNSPECIFIED 06/25/2016 THALIA CAMARENA MD Ot E78.5 HYPERLIPIDEMIA, UNSPECIFIED 06/25/2016 THALIA CAMARENA MD Ot I10 ESSENTIAL (PRIMARY) HYPERTENSION 06/25/2016 THALIA CAMARENA MD Ot I25.10 ATHSCL HEART DISEASE OF [place] CORONARY 06/25/2016 THALIA CAMARENA MD Ot 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 06/25/2016 THALIA CAMARENA MD Ot R07.9 CHEST PAIN, UNSPECIFIED 07/07/2016 ALANNA EDGAR DO Ot R10.13 EPIGASTRIC PAIN 07/07/2016 EDGAR DO, ALANNA Aguilar Ot R10.13 EPIGASTRIC PAIN 07/14/2016 EDGAR DO, ALANNA Aguilar Ot R10.13 EPIGASTRIC PAIN 07/25/2016 EDGAR DO, ALANNA Aguilar Ot R10.13 EPIGASTRIC PAIN 11/02/2016 EDGAR DO, ALANNA Aguilar Ot K82.8 OTHER SPECIFIED DISEASES OF GALLBLADDER 11/02/2016 EDGAR DO, ALANNA Aguilar Ot R10.13 EPIGASTRIC PAIN 11/02/2016 EDGAR DO, ALANNA Aguilar Ot K82.8 OTHER SPECIFIED DISEASES OF GALLBLADDER 11/02/2016 EDGAR DO, ALANNA Aguilar Ot R10.13 EPIGASTRIC PAIN 11/10/2016 EDGAR DO, ALANNA Aguilar Ot K82.8 OTHER SPECIFIED DISEASES OF GALLBLADDER 11/10/2016 EDGAR DO, ALANNA Aguilar Ot R10.13 EPIGASTRIC PAIN 12/07/2016 REMINGTON ESTES MD Ot K21.9 GASTRO-ESOPHAGEAL REFLUX DISEASE WITHOUT 12/16/2016 REMINGTON ESTES MD Ot K21.9 GASTRO-ESOPHAGEAL REFLUX DISEASE WITHOUT 03/09/2017 JENNIFER DEL CID FACC, ALI FACP CCDS Ot I25.10 ATHSCL HEART DISEASE OF [place] CORONARY 03/09/2017 JENNIFER DEL CID FACC, ALI FACP CCDS Ot I73.9 PERIPHERAL VASCULAR DISEASE, UNSPECIFIED 03/27/2017 JENNIFER DEL CID FACC, ALI FACP CCDS Ot I25.10 ATHSCL HEART DISEASE OF [place] CORONARY 03/27/2017 JENNIFER DEL CID FACC, ALI FACP CCDS Ot I73.9 PERIPHERAL VASCULAR DISEASE, UNSPECIFIED 06/19/2017 Ot 781.91 LOSS OF HEIGHT 06/19/2017 Ot V17.81 FAMILY HISTORY, OSTEOPOROSIS 06/19/2017 Ot V82.81 SCREENING FOR OSTEOPOROSIS 06/19/2017 Ot 786.50 CHEST PAIN NOS 06/19/2017 JENNIFER DEL CID FACC, ALI FACP CCDS Ot 272.4 HYPERLIPIDEMIA NEC/NOS 06/19/2017 JENNIFER DEL CID FACC, ALI FACP CCDS Ot 414.01 CORONARY ATHEROSCLEROSIS OF [place] CORON 06/19/2017 JENNIFER DEL CID FACC, ALI FACP CCDS Ot 511.9 PLEURAL EFFUSION NOS 06/19/2017 BLAIR MICHAEL DO Ot 272.4 HYPERLIPIDEMIA NEC/NOS 06/19/2017 BLAIR MICHAEL DO Ot 414.01 CORONARY ATHEROSCLEROSIS OF [place] CORON 06/19/2017 BLAIR MICHAEL DO Ot 780.54 HYPERSOMNIA, UNSPECIFIED 06/19/2017 FERNANDA CAMACHO BLAIR Pierce Ot 786.09 RESPIRATORY ABNORM NEC 06/19/2017 BLAIR MICHAEL DO Ot R06.00 DYSPNEA, UNSPECIFIED 06/19/2017 BLAIR MICHAEL DO Ot R91.8 OTHER NONSPECIFIC ABNORMAL FINDING OF [place]GENIE 06/19/2017 ALANNA EDGAR DO Ot Z48.812 ENCNTR FOR SURGICAL AFTCR FOLLOWING SURG 06/19/2017 ALANNA EDGAR DO Ot Z95.1 PRESENCE OF AORTOCORONARY BYPASS GRAFT 06/19/2017 JENNIFER DEL CID FACC, ALI FACP CCDS Ot I25.10 ATHSCL HEART DISEASE OF [place] CORONARY 06/19/2017 JENNIFER DEL CID FACC, ALI FACP CCDS Ot R55 SYNCOPE AND COLLAPSE 06/19/2017 JENNIFER DEL CID FACC, ALI FACP CCDS Ot I25.10 ATHSCL HEART DISEASE OF [place] CORONARY 06/19/2017 JENNIFER DEL CID FACC, ALI FACP CCDS Ot R55 SYNCOPE AND COLLAPSE 06/19/2017 JENNIFER DEL CID FACC, ALI FACP CCDS Ot E78.4 OTHER HYPERLIPIDEMIA 06/19/2017 JENNIFER DEL CID FACC, ALI FACP CCDS Ot I25.10 ATHSCL HEART DISEASE OF [place] CORONARY 06/19/2017 JENNIFER DEL CID FACC, ALI FACP CCDS Ot I95.1 ORTHOSTATIC HYPOTENSION 06/19/2017 JENNIFER DEL CID FACC, ALI FACP CCDS Ot R55 SYNCOPE AND COLLAPSE 06/19/2017 ALANNA EDGAR DO Ot R10.13 EPIGASTRIC PAIN 06/19/2017 ALANNA EDGAR DO Ot K82.8 OTHER SPECIFIED DISEASES OF GALLBLADDER 06/19/2017 ALANNA EDGAR DO Ot R10.13 EPIGASTRIC PAIN 06/19/2017 REMINGTON ESTES MD Ot K21.9 GASTRO-ESOPHAGEAL REFLUX DISEASE WITHOUT 06/19/2017 JENNIFER DEL CID FACC, ALI FACP CCDS Ot I25.10 ATHSCL HEART DISEASE OF [place] CORONARY 06/19/2017 JENNIFER DEL CID FACC, ALI FACP CCDS Ot I73.9 PERIPHERAL VASCULAR DISEASE, UNSPECIFIED 06/27/2017 JENNIFER MD FACC, ALI FACP CCDS Ot E78.4 OTHER HYPERLIPIDEMIA 06/27/2017 JENNIFER DEL CID FACC, ALI FACP CCDS Ot I10 ESSENTIAL (PRIMARY) HYPERTENSION 06/27/2017 JENNIFER DEL CID FACC, ALI FACP CCDS Ot I25.10 ATHSCL HEART DISEASE OF [place] CORONARY 06/27/2017 JENNIFER DEL CID FACC, ALI FACP CCDS Ot I65.23 OCCLUSION AND STENOSIS OF BILATERAL [place] 06/27/2017 JENNIFER DEL CID FACC, ALI FACP CCDS Ot E78.4 OTHER HYPERLIPIDEMIA 06/27/2017 JENNIFER DEL CID FACC, ALI FACP CCDS Ot I10 ESSENTIAL (PRIMARY) HYPERTENSION 06/27/2017 JENNIFER DEL CID FACC, ALI FACP CCDS Ot I25.10 ATHSCL HEART DISEASE OF [place] CORONARY 06/27/2017 JENNIFER DEL CID FACC, ALI FACP CCDS Ot I65.23 OCCLUSION AND STENOSIS OF BILATERAL [place] 07/05/2017 JENNIFER DEL CID FACC, ALI FACP CCDS Ot E78.4 OTHER HYPERLIPIDEMIA 07/05/2017 JENNIFER DEL CID FACC, ALI FACP CCDS Ot I10 ESSENTIAL (PRIMARY) HYPERTENSION 07/05/2017 JENNIFER DEL CID FACC, ALI FACP CCDS Ot I25.10 ATHSCL HEART DISEASE OF [place] CORONARY 07/05/2017 JENNIFER DEL CID FACC, ALI FACP CCDS Ot I65.23 OCCLUSION AND STENOSIS OF BILATERAL [place] 07/05/2017 ALANNA EDGAR DO Ot G45.9 TRANSIENT CEREBRAL ISCHEMIC ATTACK, UNSP 07/05/2017 ALANNA EDGAR DO Ot G93.89 OTHER SPECIFIED DISORDERS OF BRAIN 07/05/2017 ALANNA EDGAR DO Ot J34.89 OTHER SPECIFIED DISORDERS OF NOSE AND NA 07/17/2017 JENNIFER DEL CID FACC, ALI FACP CCDS Ot E78.4 OTHER HYPERLIPIDEMIA 07/17/2017 JENNIFER DEL CID FACC, ALI FACP CCDS Ot I10 ESSENTIAL (PRIMARY) HYPERTENSION 07/17/2017 JENNIFER DEL CID FACC, ALI FACP CCDS Ot I25.10 ATHSCL HEART DISEASE OF [place] CORONARY 07/17/2017 JENNIFER DEL CID FACC, ALI FACP CCDS Ot I65.23 OCCLUSION AND STENOSIS OF [place]ILATERAL [place] 07/17/2017 ALANNA EDGAR DO Ot G45.9 TRANSIENT CEREBRAL ISCHEMIC ATTACK, UNSP 07/17/2017 ALANNA EDGAR DO Ot G93.89 OTHER SPECIFIED DISORDERS OF BRAIN 07/17/2017 ALANNA EDGAR DO Ot J34.89 OTHER SPECIFIED DISORDERS OF NOSE AND NA Procedures There is no data. Results Test Result Range Complete blood count (CBC) with automated white blood cell (WBC) differential - 12/19/15 17:23 Blood leukocytes automated count (number/volume) 4.6 10*3/uL 4.3-11.0 Blood erythrocytes automated count (number/volume) 4.47 10*6/uL 4.35-5.85 Venous blood hemoglobin measurement (mass/volume) 13.4 [...] Automated blood platelet mean volume measurement 9.1 [foz_us] 7.4-10.4 Automated blood neutrophils/100 leukocytes 51 % [...] Serum or plasma sodium measurement (moles/volume) 136 mmol/L 135-145 Serum or plasma potassium measurement (moles/volume) 4.5 mmol/L 3.6-5.0 Serum or plasma chloride measurement (moles/volume) 105 mmol/L 98-107 Carbon dioxide 27 mmol/L 21-32 Serum or plasma anion gap determination (moles/volume) 4 mmol/L 5-14 Serum or plasma urea nitrogen measurement (mass/volume) 16 mg/dL 7-18 Serum or plasma creatinine measurement (mass/volume) 1.26 mg/dL 0.60-1.30 Serum or plasma urea nitrogen/creatinine mass [...] or plasma troponin i.cardiac measurement (mass/volume) < ng/ mL <0.30 PT panel in platelet poor plasma [...] or plasma troponin i.cardiac measurement (mass/volume) < ng/ mL <0.30 Complete blood count (CBC) with automated white blood cell (WBC) differential - 12/20/15 04:30 Blood leukocytes automated count (number/volume) 5.5 10*3/uL 4.3-11.0 Blood erythrocytes automated count (number/volume) 4.60 10*6/uL 4.35-5.85 Venous blood hemoglobin measurement (mass/volume) 13.8 [...] Automated blood platelet mean volume measurement 9.5 [foz_us] 7.4-10.4 Automated blood neutrophils/100 leukocytes 46 % [...] Serum or plasma sodium measurement (moles/volume) 142 mmol/L 135-145 Serum or plasma potassium measurement (moles/volume) 4.7 mmol/L 3.6-5.0 Serum or plasma chloride measurement (moles/volume) 109 mmol/L 98-107 Carbon dioxide 25 mmol/L 21-32 Serum or plasma anion gap determination (moles/volume) 8 mmol/L 5-14 Serum or plasma urea nitrogen measurement (mass/volume) 15 mg/dL 7-18 Serum or plasma creatinine measurement (mass/volume) 1.17 mg/dL 0.60-1.30 Serum or plasma urea nitrogen/creatinine mass [...] Serum or plasma triglyceride measurement (mass/volume) 98 mg/dL <150 Serum or plasma cholesterol measurement (mass/volume) 139 mg/dL < 200 Serum or plasma cholesterol in HDL measurement (mass/volume) 37 mg/ dL 40-60 Cholesterol in LDL [mass/volume] in serum or plasma by direct assay 86 mg/dL 1-129 Serum or plasma cholesterol in VLDL measurement (mass/volume) 20 mg/ dL 5-40 Complete blood count (CBC) with automated white blood cell (WBC) differential - 02/17/16 18:32 Blood leukocytes automated count (number/volume) 6.0 10*3/uL 4.3-11.0 Blood erythrocytes automated count (number/volume) 4.55 10*6/uL 4.35-5.85 Venous blood hemoglobin measurement (mass/volume) 13.7 [...] Automated blood platelet mean volume measurement 9.4 [foz_us] 7.4-10.4 Automated blood neutrophils/100 leukocytes 55 % [...] Serum or plasma sodium measurement (moles/volume) 138 mmol/L 135-145 Serum or plasma potassium measurement (moles/volume) 4.5 mmol/L 3.6-5.0 Serum or plasma chloride measurement (moles/volume) 107 mmol/L 98-107 Carbon dioxide 21 mmol/L 21-32 Serum or plasma anion gap determination (moles/volume) 10 mmol/L 5-14 Serum or plasma urea nitrogen measurement (mass/volume) 16 mg/dL 7-18 Serum or plasma creatinine measurement (mass/volume) 1.21 mg/dL 0.60-1.30 Serum or plasma urea nitrogen/creatinine mass [...] or plasma troponin i.cardiac measurement (mass/volume) < ng/ mL <0.30 Complete blood count (CBC) with automated white blood cell (WBC) differential - 06/24/16 18:57 Blood leukocytes automated count (number/volume) 6.4 10*3/uL 4.3-11.0 Blood erythrocytes automated count (number/volume) 4.92 10*6/uL 4.35-5.85 Venous blood hemoglobin measurement (mass/volume) 14.9 [...] Automated blood platelet mean volume measurement 9.3 [foz_us] 7.4-10.4 Automated blood neutrophils/100 leukocytes 43 % [...] Serum or plasma sodium measurement (moles/volume) 139 mmol/L 135-145 Serum or plasma potassium measurement (moles/volume) 3.7 mmol/L 3.6-5.0 Serum or plasma chloride measurement (moles/volume) 108 mmol/L 98-107 Carbon dioxide 24 mmol/L 21-32 Serum or plasma anion gap determination (moles/volume) 7 mmol/L 5-14 Serum or plasma urea nitrogen measurement (mass/volume) 16 mg/dL 7-18 Serum or plasma creatinine measurement (mass/volume) 1.13 mg/dL 0.60-1.30 Serum or plasma urea nitrogen/creatinine mass [...] or plasma troponin i.cardiac measurement (mass/volume) < ng/ mL <0.30 Myoglobin, serum - 06/24/16 18:57 Myoglobin, serum 62.3 ng/mL 10.0-92.0 Complete blood count (CBC) with automated white blood cell (WBC) differential - 06/25/16 02:07 Blood leukocytes automated count (number/volume) 5.8 10*3/uL 4.3-11.0 Blood erythrocytes automated count (number/volume) 4.32 10*6/uL 4.35-5.85 Venous blood hemoglobin measurement (mass/volume) 13.1 [...] Automated blood platelet mean volume measurement 9.5 [foz_us] 7.4-10.4 Automated blood neutrophils/100 leukocytes 47 % [...] Serum or plasma sodium measurement (moles/volume) 139 mmol/L 135-145 Serum or plasma potassium measurement (moles/volume) 3.9 mmol/L 3.6-5.0 Serum or plasma chloride measurement (moles/volume) 107 mmol/L 98-107 Carbon dioxide 25 mmol/L 21-32 Serum or plasma anion gap determination (moles/volume) 7 mmol/L 5-14 Serum or plasma urea nitrogen measurement (mass/volume) 15 mg/dL 7-18 Serum or plasma creatinine measurement (mass/volume) 1.11 mg/dL 0.60-1.30 Serum or plasma urea nitrogen/creatinine mass ratio 14 NRG Serum or plasma creatinine measurement with calculation of estimated glomerular filtration rate > NRG Serum or plasma glucose measurement (mass/volume) 83 mg/dL 70-105 Serum or plasma calcium measurement (mass/volume) 8.8 mg/dL 8.5-10.1 Serum or plasma phosphate measurement (mass/volume) - 06/25/16 02:07 Serum or plasma phosphate measurement (mass/volume) 2.8 mg/dL 2.3-4.7 Magnesium - 06/25/16 02:07 Magnesium 2.3 mg/dL 1.8-2.4 Serum or plasma troponin i.cardiac measurement (mass/volume) - 06/25/16 02:07 Serum or plasma troponin i.cardiac measurement (mass/volume) < ng/ mL <0.30 Lipid 1996 panel - 06/25/16 02:07 Serum or plasma triglyceride measurement (mass/volume) 88 mg/dL <150 Serum or plasma cholesterol measurement (mass/volume) 136 mg/dL < 200 Serum or plasma cholesterol in HDL measurement (mass/volume) 34 mg/ dL 40-60 Cholesterol in LDL [mass/volume] in serum or plasma by direct assay 87 mg/dL 1-129 Serum or plasma cholesterol in VLDL measurement (mass/volume) 18 mg/ dL 5-40 Lipid 1996 panel - 06/25/16 06:55 Serum or plasma triglyceride measurement (mass/volume) 107 mg/dL <150 Serum or plasma cholesterol measurement (mass/volume) 141 mg/dL < 200 Serum or plasma cholesterol in HDL measurement (mass/volume) 31 mg/ dL 40-60 Cholesterol in LDL [mass/volume] in serum or plasma by direct assay 92 mg/dL 1-129 Serum or plasma cholesterol in VLDL measurement (mass/volume) 21 mg/ dL 5-40 Serum or plasma troponin i.cardiac measurement (mass/volume) - 06/25/16 06:55 Serum or plasma troponin i.cardiac measurement (mass/volume) < ng/ mL <0.30 Encounters ACCT No. Visit Date/Time Discharge Status Pt. Type Provider Facility Loc./Unit Complaint [id number] 06/23/2017 12:47:00 06/23/2017 23:59:59 CLS Outpatient JACEY RODRIGUEZ MD, FACC, FACP CCDS [facility] CARD CAD [id number] 06/23/2017 11:41:00 06/23/2017 23:59:59 CLS Outpatient ALANNA EDGAR DO [facility] RAD TIA [id number] 02/28/2017 12:34:00 02/28/2017 23:59:59 CLS Outpatient JACEY RODRIGUEZ MD, FACC, FACP CCDS [facility] RAD CLAUDICATION I73.9 [id number] 12/01/2016 07:58:00 12/01/2016 23:59:59 CLS Outpatient REMINGTON ESTES MD [facility] RAD R10.13 [id number] 10/26/2016 10:00:00 10/26/2016 23:59:59 CLS Outpatient ALANNA EDGAR DO [facility] CARD R10.13 [id number] 07/06/2016 08:57:00 07/06/2016 23:59:59 CLS Outpatient ALANNA EDGAR DO [facility] RAD R10.13 [id number] 06/24/2016 20:16:00 06/25/2016 11:15:00 DIS Inpatient THALIA CAMARENA MD [facility] ICU HYPERTENSION,CHEST PAIN [id number] 03/11/2016 10:49:00 03/11/2016 23:59:59 CLS Outpatient JACEY RODRIGUEZ MD, FACC, FACP CCDS [facility] CARD CAD IN UPPER [place] ARTERY [id number] 02/17/2016 17:45:00 02/17/2016 19:44:00 DIS Emergency LEAH STONE DO [facility] ER HIGH BP [id number] 12/19/2015 19:25:00 12/20/2015 10:24:00 DIS Inpatient THALIA CAMARENA MD [facility] ICU CHEST PAIN [id number] 11/04/2015 20:52:00 11/05/2015 14:34:00 DIS Inpatient CARMELA CAMACHO RONALDO [facility] ICU HTN URGENCY,AMNESIA [id number] 10/11/2015 14:46:00 10/12/2015 11:10:00 DIS Inpatient RONALDO CASEY DO [facility] ICU SUBACUTE RESOLVING SUBDURAL HEMATURA WITH RECURREN [id number] 09/22/2015 15:49:00 09/22/2015 17:25:00 DIS Emergency LEAH STONE DO [facility] ER L SIDE ARM PAIN [id number] 06/23/2015 10:22:00 06/23/2015 23:59:59 CLS Outpatient JENNIFER DEL CID FACC, ALI MAHENDRAP CCDS [facility] CARD SYNCOPE [id number] 06/19/2015 13:14:00 06/19/2015 23:59:59 CLS Outpatient JENNIFER DEL CID FACC, ALI MAHENDRAP CCDS [facility] RAD NEUROCARDIOGINIC SYNCOPE,CAD IN UPPER [place] ARTERY [id number] 05/18/2015 09:00:00 05/18/2015 23:59:59 CLS Preadmit ALANNA EDGAR DO [facility] CR STATUS POST ACB [id number] 05/13/2015 10:42:00 05/14/2015 00:01:00 DIS Outpatient ALANNA EDGAR DO [facility] CR STATUS POST ACB [id number] 05/06/2015 10:21:00 05/06/2015 23:59:59 CLS Outpatient BLAIR MICHAEL DO [facility] RAD PLEURAL EFFUSION,DYSPNEA, SUNDEEP ON CPAP [id number] 02/11/2015 11:39:00 02/11/2015 00:01:00 DIS Outpatient ALANNA EDGAR DO [facility] CR STATUS POST ACB [id number] 01/12/2015 10:01:00 01/12/2015 23:59:59 CLS Outpatient BLAIR MICHAEL DO [facility] RAD EXCESSIVE SLEEPINESS, HLP ,SNORING, CAD [id number] 01/02/2015 10:26:00 01/02/2015 23:59:59 CLS Outpatient JENNIFER DEL CID FACC, JACEY MCCRAYP CCDS [facility] RAD CAD, HYPERLIPIDEMIA [id number] 02/21/2015 20:18:00 Document Registration [id number] 07/25/2014 14:41:00 Document Registration [id number] 08/24/2012 09:56:00 Document Registration
[2017-07-19 21:21] VITALS: BP 167/96
[2017-07-19 21:59] VITALS: BP 160/87
[2017-07-19 22:18] LABS: BASOPHILS # (AUTO) 0.1 10^3/uL (0.0-0.1); BASOPHILS % (AUTO) 1 % (0-10); EOSINOPHILS # (AUTO) 0.4 10^3/uL (0.0-0.3); EOSINOPHILS % (AUTO) 7 % (0-10); HEMATOCRIT 40 % (40-54); HEMOGLOBIN 14.3 G/DL (13.3-17.7); LYMPHOCYTES # (AUTO) 1.6 X 10^3 (1.0-4.0); LYMPHOCYTES % (AUTO) 29 % (12-44); MEAN CORPUSCULAR HEMOGLOBIN 31 PG (25-34); MEAN CORPUSCULAR HGB CONC 36 G/DL (32-36); MEAN CORPUSCULAR VOLUME 85 FL (80-99); MEAN PLATELET VOLUME 9.2 FL (7.4-10.4); MONOCYTES # (AUTO) 0.5 X 10^3 (0.0-1.0); MONOCYTES % (AUTO) 8 % (0-12); NEUTROPHILS # (AUTO) 3.1 X 10^3 (1.8-7.8); NEUTROPHILS % (AUTO) 55 % (42-75); PLATELET COUNT 203 10^3/uL (130-400); RED BLOOD COUNT 4.69 10^6/uL (4.35-5.85); RED CELL DISTRIBUTION WIDTH 11.8 % (10.0-14.5); WHITE BLOOD COUNT 5.7 10^3/uL (4.3-11.0)
[2017-07-19 22:35] LABS: BUN/CREATININE RATIO 13; CALCIUM 9.4 MG/DL (8.5-10.1); CARBON DIOXIDE 26 MMOL/L (21-32); CHLORIDE 105 MMOL/L (98-107); CREATININE SERUM 1.06 MG/DL (0.60-1.30); GFR ESTIMATED > 60; GLUCOSE 116 MG/DL (70-105); POTASSIUM 4.3 MMOL/L (3.6-5.0); SODIUM 138 MMOL/L (135-145)
[2017-07-19 22:47] VITALS: BP 127/69
--- NOTE | 2017-07-19 22:52 | ED Cardiac General ---
History of Present Illness General Chief Complaint: Cardiac/General Problems Stated Complaint: HIGH BP Nursing Triage Note: pt reports high blood pressure tonight. Allergies and Home Medications Allergies Coded Allergies: levetiracetam (Verified Allergy, Mild, 10/11/15) Penicillins (Verified Allergy, Unknown, 09/22/15) cefuroxime (Verified Allergy, Unknown, 09/22/15) Home Medications Aspirin 81 Mg Tablet.dr, 81 MG PO DAILY, (Reported) Atorvastatin Calcium 20 Mg Tablet, 10 MG PO HS Prescribed by: MAZIN MURRAY on 06/25/16 0950 Cholecalciferol (Vitamin D3) 1,000 Unit Tablet, 1,000 UNIT PO DAILY, (Reported) L.acidoph & Paracasei,B.lactis 1 Each Capsule, 1 CAP PO DAILY, (Reported) Multivitamin 1 Each Tablet, 1 TAB PO DAILY, (Reported) Nitroglycerin 0.4 Mg Tab.subl, 0.4 MG SL PRN, (Reported) Past Vsoiobv-Muwjuq-Enbhwx Hx Patient Social History Alcohol Use: Denies Use Recreational Drug Use: No Smoking Status: Never a Smoker 2nd Hand Smoke Exposure: No Recent Foreign Travel: No Contact w/Someone Who Travel: No Recent Infectious Disease Expo: No Recent Hopitalizations: No Immunizations Up To Date Tetanus Booster (TDap): Unknown PED Vaccines UTD: Yes Seasonal Allergies Seasonal Allergies: Yes Surgeries History of Surgeries: Yes (SUBDURAL HEMATOMA, QUAD BYPASS) Surgeries: Cardiac, CABG, Neurological Respiratory History of Respiratory Disorde: Yes Respiratory Disorders: Sleep Apnea Currently Using CPAP: No (PT HAS ONE BUT DOES NOT WEAR) Cardiovascular History of Cardiac Disorders: Yes Cardiac Disorders: Coronary Artery Disease, Heart Attack, High Cholesterol, Hypertension Neurological History of Neurological Disord: Yes (SUBDURAL HEMATOMA 09/27) Reproductive System Hx Reproductive Disorders: No Genitourinary History of Genitourinary Disor: No Gastrointestinal History of Gastrointestinal Di: No Musculoskeletal History of Musculoskeletal Dis: No Endocrine History of Endocrine Disorders: No HEENT History of HEENT Disorders: Yes Cancer History of Cancer: No Psychosocial History of Psychiatric Problem: No Behavioral Health Disorders: Anxiety, Depression Integumentary History of Skin or Integumenta: Yes Skin/Integumentary Disorders: Eczema Blood Transfusions History of Blood Disorders: No Family Medical History Family Medial History: FH: breast cancer 19 MOTHER Hypercholesterolemia G8 BROTHER Hypertension G8 BROTHER Physical Exam Vital Signs Vital Signs - First Documented 07/19/17 21:10 Temp 98.5 Pulse 85 Resp 16 B/P (MAP) 188/106 (133) Pulse Ox 100 O2 Delivery Room Air Capillary Refill : Less Than 3 Seconds Progress/Results/Core Measures Results/Orders Lab Results Laboratory Tests Test 07/19/17 22:10 Range/Units White Blood Count 5.7 4.3-11.0 10^3/uL Red Blood Count 4.69 4.35-5.85 10^6/uL Hemoglobin 14.3 13.3-17.7 G/DL Hematocrit 40 40-54 % Mean Corpuscular Volume 85 80-99 FL Mean Corpuscular Hemoglobin 31 25-34 PG Mean Corpuscular Hemoglobin Concent 36 32-36 G/DL Red Cell Distribution Width 11.8 10.0-14.5 % Platelet Count 203 130-400 10^3/uL Mean Platelet Volume 9.2 7.4-10.4 FL Neutrophils (%) (Auto) 55 42-75 % Lymphocytes (%) (Auto) 29 12-44 % Monocytes (%) (Auto) 8 0-12 % Eosinophils (%) (Auto) 7 0-10 % Basophils (%) (Auto) 1 0-10 % Neutrophils # (Auto) 3.1 1.8-7.8 X 10^3 Lymphocytes # (Auto) 1.6 1.0-4.0 X 10^3 Monocytes # (Auto) 0.5 0.0-1.0 X 10^3 Eosinophils # (Auto) 0.4 H 0.0-0.3 10^3/uL Basophils # (Auto) 0.1 0.0-0.1 10^3/uL Sodium Level 138 135-145 MMOL/L Potassium Level 4.3 3.6-5.0 MMOL/L Chloride Level 105 98-107 MMOL/L Carbon Dioxide Level 26 21-32 MMOL/L Anion Gap 7 5-14 MMOL/L Blood Urea Nitrogen 14 7-18 MG/DL Creatinine 1.06 0.60-1.30 MG/DL Estimat Glomerular Filtration Rate > 60 BUN/Creatinine Ratio 13 Glucose Level 116 H 70-105 MG/DL Calcium Level 9.4 8.5-10.1 MG/DL Troponin I < 0.30 <0.30 NG/ML My Orders Orders - BERTHA,LEAH K DO Basic Metabolic Panel (07/19/17 21:37) Cbc With Automated Diff (07/19/17 21:37) Troponin I (07/19/17 21:37) Ekg Tracing (07/19/17 21:37) Monitor-Rhythm Ecg Trace Only (07/19/17 21:37) Chest 1 View, Ap/Pa Only (07/19/17 21:37) Vital Signs/I&O Vital Sign - Last 12Hours 07/19/17 07/19/17 07/19/17 07/19/17 21:10 21:21 21:59 22:47 Temp 98.5 Pulse 85 90 72 72 Resp 16 14 19 20 B/P (MAP) 188/106 (133) 167/96 (119) 160/87 (111) 127/69 (88) Pulse Ox 100 100 100 97 O2 Delivery Room Air Room Air Room Air Room Air Blood Pressure Mean: 88 Departure Impression Impression: Primary Impression: HTN (hypertension) Disposition: 01 HOME, SELF-CARE Condition: Improved Departure-Patient Inst. Referrals: ALANNA EDGAR DO (PCP/Family) Primary Care Physician Patient Instructions: High Blood Pressure (DC) Add. Discharge Instructions: FOLLOW UP WITH DR. RODRIGUEZ FOR FURTHER CARE All discharge instructions reviewed with patient and/or family. Voiced understanding. LEAH STONE DO Jul 19, 2017 22:52
[2017-07-19 22:56] VITALS: BP 127/69
--- NOTE | 2017-07-20 | Diagnostic Imaging Report ---
Clinical indication: Patient with high blood pressure. Exam: Portable chest x-ray upright view. Comparisons: Chest x-ray dated 06/24/2016. Findings: Lungs/pleura: Suspected mild bibasilar atelectasis, otherwise lungs are clear. There is no pneumothorax. There is no pleural effusion. Mediastinum: Unremarkable. Pulmonary vasculature: Unremarkable. Heart: Cardiac silhouette is within normal limits. Stable postop changes to the chest with sternotomy wires and mediastinal clips. Bones/extrathoracic soft tissue: There are degenerative spurs involving the thoracic spine. Impression: Suspected mild bibasilar atelectasis. Otherwise, stable chest x-ray exam with no interval radiographic evidence of acute cardiopulmonary process. Dictated by: Dictated on workstation # [id number]
== END 2017-07-19 22:54 | disposition home or self-care (01) ==
LOC: EDUNIT# 21:03 → ER 21:04
DX: I10 Essential (primary) hypertension (principal); G47.33 Obstructive sleep apnea (adult) (pediatric); I25.10 Atherosclerotic heart disease of native coronary artery without angina pectoris; I25.2 Old myocardial infarction; E78.00 Pure hypercholesterolemia, unspecified; F41.9 Anxiety disorder, unspecified; F32.9 Major depressive disorder, single episode, unspecified; Z88.0 Allergy status to penicillin; Z80.3 Family history of malignant neoplasm of breast; Z88.8 Allergy status to other drugs, medicaments and biological substances; Z88.1 Allergy status to other antibiotic agents; Z79.52 Long term (current) use of systemic steroids; Z95.1 Presence of aortocoronary bypass graft
CPT/HCPCS: 36415; 71045; 80048; 84484; 85025; 93005; 93041

== ENCOUNTER 2018-01-24 21:12 | Outpatient (CLI) | payer BC, MEDICARE | END 2018-01-25 06:05 | disposition home or self-care (01) | LOC: SLEEP 21:12 | PROVIDERS: ATTEND Internal Medicine Critical Care Medicine | DX: G47.33 Obstructive sleep apnea (adult) (pediatric) (principal) | CPT/HCPCS: 95811 ==

== ENCOUNTER → 2019-01-11 | Outpatient (CLI) | payer BC, MEDICARE ==
--- NOTE | 2019-01-11 16:56 | Diagnostic Imaging Report ---
PROCEDURE: US carotid duplex, bilateral. TECHNIQUE: Multiple real-time grayscale images were obtained over the carotid arteries in various projections, bilaterally. Additional spectral analysis and color Doppler duplex images were also obtained. INDICATION: Carotid artery stenosis. COMPARISON: None available. FINDINGS: Minimal plaque is noted within the bilateral carotid arterial systems. Peak systolic velocity within the mid right internal carotid artery is mildly elevated at 130 cm/s. However, the right internal carotid artery to common carotid artery ratio is within normal limits at 1.4. Otherwise, peak systolic velocities throughout the bilateral carotid arterial systems are within normal limits. Antegrade flow within the bilateral vertebral arteries. IMPRESSION: 1. Near though less than 50% stenosis within the mid right internal carotid artery. 2. No evidence of hemodynamically significant stenosis. 3. Antegrade flow within the bilateral vertebral arteries. Parameters based on the consensus panel Pedersen-Scale and Doppler ultrasound criteria published March 2003, Radiology, Volume 229. DOPPLER (peak systolic velocity M/S Right Left CCA .89 .75 ICA Proximal 1.09 .96 ICA Mid 1.30 .96 ICA Distal 1.11 1.14 RATIO 1.4 1.5 ECA .91 1.08 VERT .25 .77 Dictated by: Dictated on workstation # [id number]
--- NOTE | 2019-01-11 17:24 | Diagnostic Imaging Report ---
PROCEDURE: CT head without contrast. TECHNIQUE: Multiple contiguous axial images were obtained through the brain without the use of intravenous contrast. Auto Exposure Controls were utilized during the CT exam to meet ALARA standards for radiation dose reduction. DATE: January 11, 2019. COMPARISON: June 23, 2017. INDICATION: 68-year-old male, arm weakness. Transient ischemic attack. FINDINGS: There are prior procedural related changes of the right frontal bone. There is nonspecific opacification in the right frontal sinus and right ethmoidal air cells as well as the left ethmoidal air cells. The left frontal sinus is hypoplastic. There is mild mucosal thickening of the left maxillary sinus and bilateral sphenoid sinuses. The mastoid air cells and middle ears are well aerated, bilaterally. There is mild proportional prominence of the ventricles and CSF spaces compatible with mild cerebral volume loss. There is no mass effect or midline shift. There is no acute intracranial hemorrhage. There is no abnormal extra-axial fluid collection. IMPRESSION: 1. No identified acute intracranial abnormality. 2. Nonspecific paranasal sinus opacification. Dictated by: Dictated on workstation # [id number]
== END ==
LOC: RAD 14:57
PROVIDERS: ATTEND Internal Medicine
DX: I65.23 Occlusion and stenosis of bilateral carotid arteries (principal)
CPT/HCPCS: 70450; 93880

== ENCOUNTER 2019-02-15 18:12 | Emergency (ER) | payer BC, MEDICARE ==
[~2019-02-15] VITALS: Ht 177.8 cm; Wt 75.0 kg
--- NOTE | 2019-02-15 18:56 | ED Upper Extremity ---
General Chief Complaint: Upper Extremity Stated Complaint: R ARM PAIN Nursing Triage Note: PT AMB TO TRIAGE WITH COMPLAINT OF RIGHT SHOULDER PAIN AFTER TURNING OFF A WATER SHUT OFF VALVE. Nursing Sepsis Screen: No Definite Risk Source: patient, spouse Exam Limitations: no limitations History of Present Illness Date Seen by Provider: Feb 15, 2019 Time Seen by Provider: 18:40 Initial Comments 69-year-old male patient presents to the emergency department with complaints of sudden onset of right shoulder pain while turning the water shut off valve at home. he reports mild right shoulder pain, but reports limited range of motion to the right shoulder. Patient does report a previous rotator cuff injury 5 years ago while playing tennis. Location Injury Occurred: home Onset: this afternoon (1700) Pain/Injury Location: right shoulder Method of Injury: twisted Modifying Factors: Improves With Immobilization; Worse With Movement Allergies and Home Medications Allergies Coded Allergies: levetiracetam (Verified Allergy, Mild, 10/11/15) Penicillins (Verified Allergy, Unknown, 09/22/15) cefuroxime (Verified Allergy, Unknown, 09/22/15) Home Medications Aspirin 81 Mg Tablet.dr, 81 MG PO DAILY, (Reported) Atorvastatin Calcium 20 Mg Tablet, 10 MG PO HS Prescribed by: MAZIN MURRAY on 06/25/16 0950 Cholecalciferol (Vitamin D3) 1,000 Unit Tablet, 1,000 UNIT PO DAILY, (Reported) Agustínacidoph & Casi Ramonlactis 1 Each Capsule, 1 CAP PO DAILY, (Reported) Multivitamin 1 Each Tablet, 1 TAB PO DAILY, (Reported) Nitroglycerin 0.4 Mg Tab.subl, 0.4 MG SL PRN, (Reported) Patient Home Medication List Home Medication List Reviewed: Yes Review of Systems Constitutional: no symptoms reported Respiratory: no symptoms reported Cardiovascular: no symptoms reported Musculoskeletal: see HPI; No back pain; joint pain (rt shoulder); No joint swelling, No neck pain Skin: no symptoms reported Psychiatric/Neurological: Denies Headache, Denies Numbness, Denies Paresthesia, Denies Tingling, Denies Weakness All Other Systems Reviewed Negative Unless Noted: Yes (Negative excepted noted.) Past Cevpkzm-Bhamae-Mfdfxp Hx Past Med/Social Hx: Reviewed Nursing Past Med/Soc Hx Patient Social History Alcohol Use: Denies Use Recreational Drug Use: No Smoking Status: Never a Smoker 2nd Hand Smoke Exposure: No Recent Foreign Travel: No Contact w/Someone Who Travel: No Recent Infectious Disease Expo: No Recent Hopitalizations: No Physical Abuse: No Sexual Abuse: No Fear: No Immunizations Up To Date Tetanus Booster (TDap): Unknown PED Vaccines UTD: Yes Seasonal Allergies Seasonal Allergies: Yes Past Medical History Surgeries: Yes (SUBDURAL HEMATOMA, QUAD BYPASS) Cardiac, CABG, Neurological Respiratory: Yes Sleep Apnea Currently Using CPAP: No (PT HAS ONE BUT DOES NOT WEAR) Cardiac: Yes Coronary Artery Disease, Heart Attack, High Cholesterol, Hypertension Neurological: Yes (SUBDURAL HEMATOMA 09/27) Reproductive Disorders: No Genitourinary: No Gastrointestinal: No Musculoskeletal: Yes (bilateral rotator cuff injuries.) Endocrine: No HEENT: Yes Cancer: No Psychosocial: Yes Anxiety, Depression Integumentary: Yes Eczema Blood Disorders: No Family Medical History Reviewed Nursing Family Hx FH: breast cancer 19 MOTHER Hypercholesterolemia G8 BROTHER Hypertension G8 BROTHER No Pertinent Family Hx Physical Exam Vital Signs Vital Signs - First Documented 02/15/19 18:19 Pulse 69 Resp 17 B/P (MAP) 174/101 (125) Pulse Ox 99 O2 Delivery Room Air Capillary Refill : Less Than 3 Seconds Height, Weight, BMI Height: 5'10.00" Weight: 165lbs. 0oz. 74.728821kb; 23.00 BMI Method:Stated General Appearance: WD/WN, no apparent distress Neck: non-tender, full range of motion, supple, normal inspection Cardiovascular: normal peripheral pulses, regular rate, rhythm, no murmur Respiratory: lungs clear, normal breath sounds, no respiratory distress, no accessory muscle use Shoulder: No asymmetry, No bone tenderness, No deformity, No ecchymosis; limited ROM (active ROM 0-45 degrees abduction. passive ROM 0-110 degrees.), pain (rt anterior shoulder TTP), soft tissue tenderness (rt anterior shoulder); No swelling Elbow/Forearm: normal inspection, non-tender, no evidence of injury, normal ROM, Right Wrist: Yes normal inspection, Yes non-tender, Yes no evidence of injury, Yes normal ROM Hand: normal inspection, non-tender, no evidence of injury, normal ROM, Right Neurologic/Tendon: normal sensation, normal motor functions, normal tendon functions, responds to pain, no evidence tendon injury Neurologic/Psychiatric: alert, normal mood/affect, oriented x 3 Skin: normal color, warm/dry; No ecchymosis Progress/Results/Core Measures Results/Orders My Orders Orders - NIMCO PARSONS Shoulder, Right, 3 Views (02/15/19 18:51) Vital Signs/I&O 02/15/19 02/15/19 18:19 20:41 Pulse 69 69 Resp 17 17 B/P (MAP) 174/101 (125) 146/74 (125) Pulse Ox 99 99 O2 Delivery Room Air Blood Pressure Mean: 125 Diagnostic Imaging Diagonstic Imaging: Xray Plain Films/CT/US/NM/MRI: other (shoulder) Comments Date of Exam:02/15/19 SHOULDER, RIGHT, 3 VIEWS INDICATION: Right shoulder pain. AP, oblique, and transscapular views of the right shoulder are obtained. No fracture or dislocation is seen. There is degenerative change of the AC joint and mild degenerative change of the glenohumeral joint. There is minimal distance between the acromion and humeral head, rotator cuff pathology cannot be excluded. IMPRESSION: No acute fracture or dislocation. Degenerative changes. Decreased distance between the acromion and humeral head, rotator cuff pathology cannot be excluded. Dictated by: Dictated on workstation # [id number] Reviewed: Reviewed by Me (radiology report reviewed by me) Departure Communication (Admissions) Diagnostic findings discussed with the patient. Plan for discharge to home. Impression Primary Impression: Rotator cuff injury Qualified Codes: S46.001A - Unspecified injury of muscle(s) and tendon(s) of the rotator cuff of right shoulder, initial encounter Disposition: 01 HOME, SELF-CARE Condition: Improved Departure-Patient Inst. Decision time for Depature: 19:48 Referrals: ALANNA EDGAR DO (PCP/Family) Primary Care Physician Patient Instructions: Rotator Cuff Injury (DC) Add. Discharge Instructions: All discharge instructions reviewed with patient and/or family. Voiced understanding. Tylenol Extra Strength [id number] as directed for pain. Arm sling as instructed. Ice pack for 20 minute intervals as needed for pain. Follow-up with your primary care provider for recheck as an outpatient this week, call Monday morning for appointment time. Your family practitioner may suggest doing an MRI on the right shoulder to further evaluate the rotator cuff muscles. Return to the emergency department for worsened pain, numbness, tingling, or any other concerns. NIMCO PARSONS Feb 15, 2019 18:56
--- NOTE | 2019-02-15 19:06 | Diagnostic Imaging Report ---
INDICATION: Right shoulder pain. AP, oblique, and transscapular views of the right shoulder are obtained. No fracture or dislocation is seen. There is degenerative change of the AC joint and mild degenerative change of the glenohumeral joint. There is minimal distance between the acromion and humeral head, rotator cuff pathology cannot be excluded. IMPRESSION: No acute fracture or dislocation. Degenerative changes. Decreased distance between the acromion and humeral head, rotator cuff pathology cannot be excluded. Dictated by: Dictated on workstation # [id number]
[2019-02-15 20:41] VITALS: BP 146/74
== END 2019-02-15 20:41 | disposition home or self-care (01) ==
LOC: EDUNIT# 18:12 → ER 18:13
DX: S46.001A Unspecified injury of muscle(s) and tendon(s) of the rotator cuff of right shoulder, initial encounter (principal); G47.30 Sleep apnea, unspecified; I25.10 Atherosclerotic heart disease of native coronary artery without angina pectoris; I25.2 Old myocardial infarction; I10 Essential (primary) hypertension; E78.00 Pure hypercholesterolemia, unspecified; F41.9 Anxiety disorder, unspecified; F32.9 Major depressive disorder, single episode, unspecified; Z95.1 Presence of aortocoronary bypass graft; Z88.0 Allergy status to penicillin; Z88.8 Allergy status to other drugs, medicaments and biological substances; Z88.1 Allergy status to other antibiotic agents; Z79.82 Long term (current) use of aspirin; Z80.3 Family history of malignant neoplasm of breast; Z82.49 Family history of ischemic heart disease and other diseases of the circulatory system; X50.1XXA Overexertion from prolonged static or awkward postures, initial encounter; Y92.009 Unspecified place in unspecified non-institutional (private) residence as the place of occurrence of the external cause
CPT/HCPCS: 73030

== ENCOUNTER → 2019-05-10 | Outpatient (CLI) | payer BC, MEDICARE | LOC: RAD 12:55 | PROVIDERS: ATTEND Nurse Practitioner Family | DX: M75.101 Unspecified rotator cuff tear or rupture of right shoulder, not specified as traumatic (principal); M19.011 Primary osteoarthritis, right shoulder ==